=== PATIENT | male | born 1975 | race Two or more races ===

== ENCOUNTER 2023-12-01 09:12 | Outpatient (REF) | payer MEDICAID, OTHER, SELFPAY ==
--- NOTE | ~2023-12-01 | US_ITS ---
EXAMINATION: US ABDOMEN COMPLETE CLINICAL INFORMATION: Right upper quadrant pain. COMPARISON: None available. TECHNIQUE: Real-time imaging of the abdominal viscera. FINDINGS: PANCREAS: Limited visualization. ABDOMINAL AORTA: The proximal, mid, and distal segments are normal in caliber. INFERIOR VENA CAVA: Visualized portions are normal. LIVER: The liver is normal in size. The liver contour is normal. There is diffuse increased liver parenchymal echogenicity, consistent with hepatic steatosis. No focal hepatic lesion. There is no intrahepatic biliary duct dilatation seen. GALLBLADDER: Stones and sludge in the gallbladder. Diffuse gallbladder wall thickening. Negative sonographic Esparza sign. COMMON BILE DUCT: Normal in caliber measuring 0.4 cm in diameter. RIGHT KIDNEY: No hydronephrosis. No renal calculi or focal parenchymal lesions. The kidney measures 12.6 cm in maximum dimension. LEFT KIDNEY: No hydronephrosis. No renal calculi or focal parenchymal lesions. The kidney measures 9.9 cm in maximum dimension. SPLEEN: The spleen measures 9.3 cm in maximum dimension. FREE FLUID: None. US/US abdomen complete IMPRESSION: Hepatic steatosis. Stones and sludge in the gallbladder with gallbladder wall thickening. Findings are equivocal for acute cholecystitis. Advise clinical correlation.
== END 2023-12-01 09:13 | disposition home or self-care (01) ==
LOC: HO.US 09:12
PROVIDERS: Visit Provider Internal Medicine
DX: R10.11 Right upper quadrant pain (principal); Z87.19 Personal history of other diseases of the digestive system
CPT/HCPCS: 76700

== ENCOUNTER 2024-09-13 08:25 | Outpatient (REF) | payer MEDICAID, OTHER, SELFPAY ==
[2024-09-13 12:38] LABS: Estimated Average Glucose 111 mg/dL; Hemoglobin A1C 129.1801 umol/L; Hemoglobin A1c % 5.5 % (<6.0); Total Hemoglobin (HGBA1C) 3493.7218 umol/L
[2024-09-13 12:41] LABS: Anion Gap 12 (12-20); Blood Urea Nitrogen 17 mg/dL (9-16); Calcium 9.4 mg/dL (8.4-10.2); Carbon Dioxide 25 mmol/L (22-29); Chloride 107 mmol/L (96-108); Estimated Glomerular Filt Rate > 60; Glucose Random 95 mg/dL (60-115); Potassium 3.9 mmol/L (3.3-5.1); Sodium 140 mmol/L (135-145)
== END 2024-09-13 08:26 | disposition home or self-care (01) ==
LOC: HO.HHCL 08:25
PROVIDERS: Visit Provider Student in an Organized Health Care Education/Training Program
DX: R35.0 Frequency of micturition (principal)
CPT/HCPCS: 36415; 80048; 83036

== ENCOUNTER 2024-11-18 11:57 | Outpatient (REF) | payer OTHER, SELFPAY ==
--- OUTSIDE RECORDS SUMMARY | 2024-11-18 13:05 | XMS_ITS | Clinical Summary ---
Author Organization [facility] Address [address] [place] [address] Care Team Providers Care Biological Science Technician Name Role Phone Shannen Turner Primary Care Provider [phone] Allergies No known active allergies Medications No known medications Active Problems Problem Noted Date Diagnosed Date Chronic cholecystitis 01/28/2024 Social History Tobacco Use Types Packs/Day Years Used Date Smoking Tobacco: Never Passive Smoke Exposure: Never Smokeless Tobacco: Never Tobacco Cessation:Counseling Given: Yes Sex and Gender Information Value Date Recorded Sex Assigned at Male 01/01/2024 11:59 AM EDT Legal Sex Male 1:38 PM EDT Gender Identity Male 05/08/2023 1:38 PM EDT Sexual Orientation Not on file Last Filed Vital Signs Vital Sign Reading Time Taken Comments Blood Pressure 119/73 01/23/2024 3:53 PM EDT Pulse 69 01/23/2024 3:53 PM EDT Temperature 36.3 ??C (97.3 ??F) 01/23/2024 3:53 PM ED T Respiratory Rate - - Oxygen Saturation 99% 01/23/2024 3:53 PM EDT Inhaled Oxygen Concentration - - Weight 68.9 kg (151 lb 14.4 oz) 01/23/2024 3:53 PM EDT Height - - Body Mass Index - - Plan of Treatment Health Maintenance Due Date Last Done Comments Cologuard 1976 Colon Cancer Screening 1976 Colonoscopy 1976 FOBT / Fit Test 1976 HIV Screening 1976 Hepatitis C Screening 1976 Sigmoidoscopy 1976 Hepatitis B Vaccines (1 of 3 - 19+ 3-dose series) 1995 DTaP,Tdap,and Td Vaccines (1 - Tdap) 1998 COVID-19 Vaccine ( - 2023-2 5 season) 2024 Influenza Vaccine (#1) 2024 Alcohol/Substance Use Screening 09/29/2024 Depression Screening and Follow-Up 09/29/2024 Social Drivers of Health Vandana ual Screening 09/29/2024 RSV Vaccine (60+ years old a nd patients) (1 - 1-dose 75+ series) 2051 Pneumococcal Vaccine: Pediat reema (0-5 Years) and At-Risk Patients (6-50 Years) Aged Out No longer eligible b ased on patient's age to complete this topic [place] [address] [place] [address] HSNO/FREE CARE Care Teams Biological Science Technician Relationship Specialty Start Date End Date Shannen Turner PCP - General 05/08/23
--- OUTSIDE RECORDS SUMMARY | 2024-11-18 13:05 | XMS_ITS | Encounter Summary ---
Author Organization [facility] Address [address] [facility] 7[address] [place] [address] Care Team Providers Care Power Transformer Inspector Name Role Phone Unavailable Primary Care Provider Unavailabl e Reason for Visit * Reason Comments [place] Encounter Details Date Type Department Care Team (Late st Contact Info) Description 11/03/2024 2:00 PM EST Office Visit [facility] ADULT [facility] [address] [place] [address] Ashlee Ayala Social History Tobacco Use Types Packs/Day Years Used Date Smoking Tobacco: Never Smokeless Tobacco: Never Alcohol Use Standard Drinks/Week Comments Defer 0 (1 standard drink = 0.6 oz pur e alcohol) Sex and Gender Information Value Date Recorded Sex Assigned at Male 05/01/2023 10:05 AM EDT Legal Sex Male 10:00 AM EDT Gender Identity Male 05/01/2023 10:05 AM EDT Sexual Orientation Straight 05/01/2023 10 :08 AM EDT documented as of this encounter Last Filed Vital Signs Vital Sign Reading Time Taken Comments Blood Pressure 100/60 11/03/2024 2:07 PM EST Pulse - - Temperature - - Respiratory Rate - - Oxygen Saturation - - Inhaled Oxygen Concentration - - Weight - - Height - - Body Mass Index - - documented in this encounter Progress Notes * Ashlee Ayala - 11/03/2024 2:00 PM EST Patient ID: Kwan Torres is a 49 y.o. male. Time Out: Timeout Date: 11/03/24, Timeout Time: 1407 (final impression for crown) Location: [facility] Tooth: #31 Procedure: Odanah and Odanah final impression Verified the above with patient, patient clerical assistant, and provider. Confirmed via patient's chart, intraorally and by radiographs. Customer Business Manager: not applicable Chief Complaint Patient presents with [facility] Medical Hx: Vitals: Blood pressure 100/60. Medications, Med Hx reviewed with patient and updated in chart. Consent Obtained: The risks, benefits, indications, potential complications, and alternatives were explained to the patient and informed consent was obtained with good understanding. Treatment Provided: Dental procedures in this visit D9430 - OFFICE VISIT FOR OBSERVATION (DURING REGULARLY SCHEDULED HOURS) - NO OTHER SERVICES PERFORMED (Completed) Service provider: Ashlee Ayala Billing provider: Fred Valdes DDS D9450 - ADJUNCTIVE GENERAL SERVICES - PROFESSIONAL VISITS - CASE PRESENTATION, SUBSEQUENT TO DETAILED AND EXTENSIVE TREATMENT PLANNING (Completed) Service provider: Ashlee Ayala Billing provider: Fred Valdes DDS D2700.1 - CROWN PREP 31 (Completed) Service provider: Ashlee Ayala Billing provider: Fred Valdes DDS D2799 - PROVISIONAL CROWN - FURTHER TREATMENT OR COMPLETION OF DIAGNOSIS NECESSARY PRIOR TO FINAL IMPRESSION 31 (Completed) Service provider: Ashlee Ayala Billing provider: Fred Valdes DDS Topical: 20% Benzocaine Anesthesia: 2% Lidocaine (Xylocaine) w/ 1:100,000 epinephrine Number of Cartridges: 2 Injection Type: Buccal infiltration, Inferior alveolar nerve block, and Local Confirmed profound anesthesia. Isolation: cotton rolls Prepared tooth for: Ceramic crown Gingival Retraction: Cord, Size 000. Cord removal verified prior to discharge Final Impression taken with: Paradigm Heavy & Light Body Bite Registration taken with: None Provisional fabricated with: Paradigm Temp Material and cemented with: TempBond Shade: A2 Lab used: [facility] Due Date: Return when completed POI given to patient with instructions for homecare, to avoid sticky or crunchy foods, and to call if temp crown becomes dislodged. All questions answered. Patient tolerated procedure well, and was discharged alert, oriented, and in stable condition. NV: 2 MO Project Management Instructor: Constance Valles Dentist: Ashlee Ayala documented in this encounter Plan of Treatment Upcoming Encounters Date Type Department Care Team (Late st Contact Info) Description 11/19/2024 10:00 AM EST Office Visit [facility] ADULT [facility] [address] [place] [address] Scheduled Orders Name Type Priority Associated Diagnoses Orde r Schedule 31 31 CROWN - PORCELAIN/CERAMIC Dental Routine 1 Occurrences starting 11/11/2024 documented as of this encounter Procedures Procedure Name Priority Date/Time Associated Diagnosis Comments 31 CROWN PREP Routine 11/03/2024 2:00 PM EST 31 PROVISIONAL CROWN - FURTHER TREATMENT OR COMPLETION OF DIAGNOSIS NECESSARY PRIOR TO FINAL IMPRESSION Routine 11/03/2024 2:00 PM EST OFFICE VISIT FOR OBSERVATION (DURING REGULARLY SCHEDULED HOURS) - NO OTHER SERVICES PERFORMED Routine 11/03/2024 2:00 PM EST CASE PRESENTATION, DETAILED AND EXTENSIVE TREATMENT PLANNING Routine 11/03/2024 2:00 PM EST documented in this encounter Visit Diagnoses Not on filedocumented in this encounter
--- OUTSIDE RECORDS SUMMARY | 2024-11-18 13:05 | XMS_ITS | Encounter Summary ---
Author Organization [facility] Address [address] [facility] 7[address] [place] [address] Care Team Providers Care Disability Hearing Officer Name Role Phone Unavailable Primary Care Provider Unavailabl e Reason for Referral * Consultation (Urgent) - Authorized Specialty Diagnoses / Procedures Referred By Contac t Referred To Contact Urology Diagnoses Urinary frequency Favio Byrd MD [address] [place] [id number] Phone: tel: fax: [facility] [address] [place], [place] Phone: tel: fax: Referral ID Status Reason Start Date Expiration Date Visits Requested Visits Authorized [id number] Authorized Specialty Services Required 11/17/2024 11/17/2025 1 1 Reason for Visit * Reason Comments UTI Encounter Details Date Type Department Care Team (Late st Contact Info) Description 11/17/2024 10:40 AM EST Office Visit [facility] [address] [place] [id number] Favio Byrd MD [address] [place] [id number] Urinary frequency (Primary Dx) Social History Tobacco Use Types Packs/Day Years [...] Sign Reading Time Taken Comments Blood Pressure 117/74 11/17/2024 10:41 AM EST Pulse 68 11/17/2024 10:41 AM EST Temperature 36.6 ??C (97.8 ??F) 11/17/2024 10:[address] Respiratory Rate 16 11/17/2024 10:41 AM EST Oxygen Saturation 97% 11/17/2024 10:41 AM EST Inhaled Oxygen Concentration - - Weight 71.4 kg (157 lb 6.4 oz) 11/17/2024 10:41 AM EST Height - - Body Mass Index 29.72 09/10/2023 4:05 PM EST documented in this encounter Progress Notes * Favio Byrd MD - 11/17/2024 10:40 AM EST Subjective Patient ID: Kwan Torres is a 49 y.o. male. Biscuit Machine Operator: Virgil. CECE Bowens was seen in [facility] 09/08/2024 for 1 week h/o urinary frequency. U/a , BMP, A1C were all normal. Was seen at [facility] ED 09/14/2024 for ongoing urinary frequency. CBC, CMP, u/a were normal. US Kidneys and Bladder Final Result 1. Normal kidneys and bladder. 2. Mildly prominent prostate. Prescribed Flomax. He returns to [facility] today because of no improvement in sx. Flomax didn't help. Urinates 15x/day, 2x/night. Has 2 week h/o intermittent mild suprapubic discomfort that resolves when he urinates. Denies hematuria, burning on urination, fever, chills, n/v, urethral discharge, or flank pain. No urinary urgency or hesitancy; states normal stream. Lives with . 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 Never smoked. Patient Active Problem List Diagnosis Headache Back pain Acute cholecystitis Acute apical periodontitis of pulpal origin Cholecystitis Chronic cholecystitis Dental caries Fractured dental mu-ism with loss of material The following portions of the chart were reviewed this encounter and updated as appropriate: Tobacco Allergies Meds Problems Med Hx Surg Hx Fam Hx Review of Systems Constitutional: Negative for fever. Respiratory: Negative for shortness of breath. Cardiovascular: Negative for chest pain. Gastrointestinal: Positive for abdominal pain. Genitourinary: Positive for frequency. Negative for flank pain and hematuria. Skin: Negative for rash. Neurological: Negative for headaches. Objective Physical Exam Constitutional: Appearance: Normal appearance. HENT: Nose: Nose normal. Eyes: Conjunctiva/sclera: Conjunctivae normal. Pupils: Pupils are equal, round, and reactive to light. Cardiovascular: Rate and Rhythm: Normal rate and regular rhythm. Heart sounds: No murmur heard. Pulmonary: Effort: Pulmonary effort is normal. Breath sounds: Normal breath sounds. Abdominal: General: Abdomen is flat. Palpations: Abdomen is soft. Tenderness: There is abdominal tenderness (minimal suprapubic). Musculoskeletal: General: Normal range of motion. Cervical back: No tenderness. Skin: Findings: No rash. Neurological: Mental Status: He is alert. Gait: Gait is intact. Psychiatric: Mood and Affect: Mood normal. Behavior: Behavior normal. Procedures Assessment/Plan Diagnoses and all orders for this visit: Urinary frequency U/a: normal. Urine C&S pending. Referred to Urology. - Culture, Urine, Routine documented in this encounter Plan of Treatment Upcoming Encounters Date Type Department Care Team (Late st Contact Info) Description 11/19/2024 10:00 AM EST Office Visit [facility] [address] [place] [address] Scheduled Orders Name Type Priority Associated Diagnoses Orde r Schedule Culture, Urine, Routine Microbiology Routine Urinary frequency Ordered: 11/17/2024 Scheduled Referrals Name Type Priority Associated Diagnoses Orde r Schedule Referral to Urology Outpatient Referral Urgent Urinary frequency Expected: 11/17/2024 (Approximate), Expires: 11/17/2025 documented as of this encounter Visit Diagnoses Diagnosis Urinary frequency- Primary documented in this encounter
--- OUTSIDE RECORDS SUMMARY | 2024-11-18 13:05 | XMS_ITS | Referral Summary ---
Author Organization [facility] Address [address] [place], [place] [phone] Care Team Providers Care Medical Device Engineer Name Role Phone Shannen Turner Primary Care Provider [phone] Allergies No known active allergies Medications No [...] Mass Index - - Plan of Treatment Not on file Insurance [facility] HS[facility]/FREE CARE Care Teams Medical Device Engineer Relationship Specialty Start Date End Date Shannen Turner PCP - General 05/08/23
--- OUTSIDE RECORDS SUMMARY | 2024-11-18 13:05 | XMS_ITS | Encounter Summary ---
Author Organization [facility] Address [address] [place] [address] 7 [place] [address] Care Team Providers Care Driver Manager Name Role Phone Unavailable Primary Care Provider Unavailabl e Reason for Visit * Reason Onset Date Comments New Patient 05/15/2023 Encounter Details Date Type Department Care Team (Late st Contact Info) Description 05/15/[address] [facility] [address] [place], [place] [phone] Sylvain Ford MD [address] [place], [place] [phone] New Patient Social History Tobacco Use Types Packs/Day Years Used Date Smoking Tobacco: Never Smokeless Tobacco: Never Sex and Gender Information Value Date Recorded Sex Assigned at Male 05/01/2023 10:05 AM EDT Legal Sex Male 10:00 AM EDT Gender Identity Male 05/01/2023 10:05 AM EDT Sexual Orientation Straight 05/01/2023 10 :08 AM EDT documented as of this encounter Miscellaneous Notes * Telephone Encounter - Preston Soler - 05/15/2023 12:33 PM EDT Pt has been transfer over to wait list for SIEVE MAKER. EFFECTIVE SINCE 05/15/2023 documented in this encounter Plan of Treatment Upcoming Encounters Date Type Department Care Team (Late st Contact Info) Description 11/19/2024 10:00 AM EST Office Visit [facility] ADULT DENT[facility] [address] [place], [place] [phone] documented as of this encounter Visit Diagnoses Not on filedocumented in this encounter
--- OUTSIDE RECORDS SUMMARY | 2024-11-18 13:06 | XMS_ITS | Clinical Summary ---
Author Organization [facility] Address [address] [place] [address] Care Team Providers Care Interventional Pain Physician Name Role Phone Priyanka Jo MD Primary Care Provider [phone] Allergies No known active allergies Medications Medication Sig Dispensed Refills Start Date End Date Status acetaminophen (TYLENOL) 325 MG tabletIndications:Acut e cholecystitis Take 3 tablets (975 mg total) by mouth 4 times daily (every 6 hours) as needed for mild pain. 08/27/2023 Active HYDROmorphone (DILAUDID) 2 MG tabletIndications:Acut e cholecystitis Take 1 tablet (2 mg total) by mouth 4 times daily (every 6 hours) as needed for moderate pain or severe pain. Max Daily Amount: 8 mg 8 tablet 08/27/2023 Active levoFLOXacin (LEVAQUIN) 500 MG tabletIndications:Acut e cholecystitis Take 1 tablet (500 mg total) by mouth daily. 5 tablet 08/27/2023 Active Active Problems Problem Noted Date Diagnosed Date Cholecystitis 08/23/2023 Acute cholecystitis 08/22/2023 Social History Tobacco Use Types Packs/Day Years Used Date Smoking Tobacco: Never Assessed Sex and Gender Information Value Date Recorded Sex Assigned at Male 08/22/2023 10:34 PM EST Gender Identity Male 08/22/2023 10:34 PM EST Sexual Orientation Heterosexual (straight) 08/22 10:34 PM EST Last Filed Vital Signs Vital Sign Reading Time Taken Comments Blood Pressure 121/75 10/15/2023 9:35 AM EST Pulse 64 10/15/2023 9:35 AM EST Temperature 35.6 ??C (96.1 ??F) 10/15/2023 8:51 AM ES T Respiratory Rate 16 10/15/2023 9:35 AM EST Oxygen Saturation 98% 10/15/2023 9:35 AM EST Inhaled Oxygen Concentration - - Weight 72.6 kg (160 lb) 08/23/2023 2:41 AM EST Height 155 cm (5' 1.02 ) 08/23/2023 2:41 AM EST Body Mass Index 30.21 08/23/2023 2:41 AM EST Plan of Treatment Health Maintenance Due Date Last Done Comments Hepatitis C Virus Screening 1976 HIV Screening 1989 DTaP/Tdap/Td Vaccines (1 - Tdap) 1995 Hepatitis B Vaccines (1 of 3 - 19+ 3-dose series) 1995 Colonoscopy 2021 Influenza Vaccine 04/29/2024 COVID-19 Vaccine ( - 2023-2 5 season) 2024 Pneumococcal Vaccine: Pediat reema (0-5 Years) and At-Risk Patients (6 to 49 Years) Aged Out No longer eligible b ased on patient's age to complete this topic Additional Health Concerns Infection Onset Date Last Indicated MDRO Comment:Place on contact precautions for each acute care admission Urine 08/25/2023 - E.coli ESBL 08/29/2023 08/29/2023 Advance Directives * Full Code (Latest Code Status on File) Date Activated Date Inactivated Comments 08/23/2023 2:20 AM 10/15/2023 8:33 AM Care Teams Interventional Pain Physician Relationship Specialty Start Date End Date Priyanka Jo MD [address] [place] [phone] PCP - General Surgery, General 08/13/23
--- OUTSIDE RECORDS SUMMARY | 2024-11-18 13:06 | XMS_ITS | Encounter Summary ---
Author Organization [facility] Address [address] [facility] 7t [place] [address] Care Team Providers Care Functional Tester Typewriters Name Role Phone Unavailable Primary Care Provider Unavailabl e Reason for Visit * Reason Comments [place] Encounter Details Date Type Department Care Team (Late st Contact Info) Description 10/22/2024 10:00 AM EST Office Visit [facility] ADULT DENTAL [address] [place] [address] Ashlee Ayala Social History Tobacco Use Types [...] Sign Reading Time Taken Comments Blood Pressure 90/60 10/22/2024 10:15 AM EST Pulse - - Temperature - - Respiratory Rate - - Oxygen Saturation - - Inhaled Oxygen Concentration - - Weight - - Height - - Body Mass Index - - documented in this encounter Progress Notes * Ashlee Ayala - 10/22/2024 10:00 AM EST Patient ID: Kwan Torres is a 49 y.o. male. Time Out: Timeout Date: 10/22/24, Timeout Time: 101 (crown prep) Location: [facility] Tooth: #30 and #31 Procedure: Bahai Verified the above with patient, water quality assistant, and provider. Confirmed via patient's chart, intraorally and by radiographs. Pharmacist Intern: not applicable Chief Complaint Patient presents with [place] Medical Hx: Vitals: Blood pressure 90/60. Medications, Med Hx reviewed with patient and updated in chart. Consent Obtained: The risks, benefits, indications, potential complications, and alternatives were explained to the patient and informed consent was obtained with good understanding. Treatment Provided: Dental procedures in this visit D2392 - RESTORATIVE - RESIN-BASED COMPOSITE RESTORATIONS - DIRECT - RESIN-BASED COMPOSITE - TWO SURFACES, POSTERIOR 30 DO (Completed) Service provider: Ashlee Ayala Billing provider: Fred Valdes DDS D2392 - RESTORATIVE - RESIN-BASED COMPOSITE RESTORATIONS - DIRECT - RESIN-BASED COMPOSITE - TWO SURFACES, POSTERIOR 31 MO (Completed) Service provider: Ashlee Ayala Billing provider: Fred Valdes DDS D9450 - ADJUNCTIVE GENERAL SERVICES - PROFESSIONAL VISITS - CASE PRESENTATION, SUBSEQUENT TO DETAILED AND EXTENSIVE TREATMENT PLANNING Diagnosis: DO caries #30 and DO caries #31 Topical: 20% Benzocaine Anesthesia: 2% Lidocaine (Xylocaine) w/ 1:100,000 epinephrine Number of Cartridges: 2 Injection Type: Buccal infiltration, Inferior alveolar nerve block, and Local Confirmed profound anesthesia. Isolation: cotton rolls Prep: All caries removed and Existing rastafarian removed Matrix: [place] and wedge Etch: 37% Phosphoric Acid Etch Desensitizer: Gluma Liner/Base: LimeLite Romero: I-Romero Bahai Material: Filtek [place] Flowable Composite and Paradigm Composite Shade: A3 Polished. Occlusion & contacts verified. Patient satisfied with comfort and esthetics. Patient tolerated procedure well. Post-operative instructions were given. Patient departed alert, oriented, and in stable condition. NV: [place] prep and temp #31 Tongue And Groove Machine Operator: Constance Valles Dentist: Ashlee Ayala documented in this encounter Plan of Treatment Upcoming Encounters Date Type Department Care Team (Late st Contact Info) Description 11/19/2024 10:00 AM EST Office Visit [facility] ADULT [facility] [address] [place] [address] documented as of this encounter Procedures Procedure Name Priority Date/Time Associated Diagnosis Comments 31 MO RESIN-BASED COMPOSITE - 2 SURF, POSTERIOR Routine 10/22/2024 10:00 AM EST 30 DO RESIN-BASED COMPOSITE - 2 SURF, POSTERIOR Routine 10/22/2024 10:00 AM EST CASE PRESENTATION, DETAILED AND EXTENSIVE TREATMENT PLANNING Routine 10/22/2024 10:00 AM EST documented in this encounter Visit Diagnoses Not on filedocumented in this encounter
--- OUTSIDE RECORDS SUMMARY | 2024-11-18 13:06 | XMS_ITS | Encounter Summary ---
Author Organization [employer] [facility] Address [address] 7 [place] [address] Care Team Providers Care Pharmaceutical Worker Name Role Phone Unavailable Primary Care Provider Unavailabl e Reason for Visit * Reason Comments Ginger Blue Encounter Details Date Type Department Care Team (Late st Contact Info) Description 11/11/2024 2:30 PM EST Office Visit [facility] ADULT DENTAL [address] [place], [place] [phone] LucyClcarlos Defective dental orthodoxy (Primary Dx) Social History Tobacco Use Types [...] Sign Reading Time Taken Comments Blood Pressure 122/80 11/11/2024 2:51 PM EST Pulse - - Temperature - - Respiratory Rate - - Oxygen Saturation - - Inhaled Oxygen Concentration - - Weight - - Height - - Body Mass Index - - documented in this encounter Progress Notes * Ashlee Lucy - 11/11/2024 2:30 PM EST Patient ID: Kwan Torres is a 49 y.o. male. Time Out: Timeout Date: 11/11/24, Timeout Time: 1437 (crown delivery) Location: [facility] Tooth: #4 Procedure: Anabaptist Verified the above with patient, electrician station assistant, and provider. Confirmed via patient's chart, intraorally and by radiographs. Caustic Room Operator: Yes. Language: Irish. Caustic Room Operator: Madai Cosby Chief Complaint Patient presents with Ginger Blue Medical Hx: Vitals: Blood pressure 122/80. Medications, Med Hx reviewed with patient and updated in chart. Consent Obtained: The risks, benefits, indications, potential complications, and alternatives were explained to the patient and informed consent was obtained with good understanding. 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 Isolation: cotton rolls Prep: All caries removed, Existing orthodoxy removed, and Preparation finalized Matrix: Sectional Matrix and wedge Etch: 37% Phosphoric Acid Etch and None Desensitizer: Gluma Liner/Base: LimeLite Romero: I-Romero Anabaptist Material: Filtek Ple[place] Flowable Composite Shade: A2 Polished. Occlusion & contacts verified. Patient satisfied with comfort and esthetics. Patient tolerated procedure well. Post-operative instructions were given. Patient departed alert, oriented, and in stable condition. NV: Ginger Blue insertion #31 Claims Examiner: Constance Valles Dentist: Ashlee Ayala documented in this encounter Plan of Treatment Upcoming Encounters Date Type Department Care Team (Late st Contact Info) Description 11/19/2024 10:00 AM EST Office Visit [facility] ADULT DENTAL [address] [place] [address] documented as of this encounter Procedures Procedure Name Priority Date/Time Associated Diagnosis Comments 4 DO RESIN-BASED COMPOSITE - 2 SURF, POSTERIOR Routine 11/11/2024 2:30 PM EST CASE PRESENTATION, DETAILED AND EXTENSIVE TREATMENT PLANNING Routine 11/11/2024 2:30 PM EST documented in this encounter Visit Diagnoses Diagnosis Defective dental orthodoxy- Primary Unspecified unsatisfactory orthodoxy of tooth documented in this encounter
--- OUTSIDE RECORDS SUMMARY | 2024-11-18 13:06 | XMS_ITS | Clinical Summary ---
Author Organization [facility] Address [address] [place] [address] Care Team Providers Care Lna Name Role Phone Unavailable Primary Care Provider Unavailabl e Allergies No known active allergies Medications acetaminophen (Tylenol) 500 MG tabletIndications :Acute apical periodontitis of pulpal origin,Fractured dental hindu with loss of material Take 1 tablet (500 mg) by mouth every 6 (six) hours if needed for mild pain for up to 20 doses. 20 tablet 4 Active Additional Information Patient not taking.Reported on 10/13/2024 ibuprofen 600 MG tabletIndications :Acute apical periodontitis of pulpal origin,Fractured dental hindu with loss of material Take 1 tablet (600 mg) by mouth every 6 (six) hours if needed for mild pain for up to 20 doses. 20 tablet 4 Active Additional Information Patient not taking.Reported on 10/13/2024 Active Problems Problem Noted Date Diagnosed Date Fractured dental hindu with loss of materi al 09/08/2024 Dental caries 02/18/2024 Chronic cholecystitis 01/28/2024 Acute apical periodontitis of pulpal origin 11/2023 Cholecystitis 08/23/2023 Acute cholecystitis 08/22/2023 09/10/2023 Overview (09/10/2023): Admitted to [facility] 08/27/23 for acute acholecystitis and COVID 1, treated with antibiotics and percutaneous cholecystotomy tube placement. Instructed at diachage to flush with sterile saline BID. Instructions at discharge: He was advised to schedule appointment with the Interventional Radiology (IR) team in approximately 4 weeks (end of August) unless otherwise instructed. If you have not received an appointment at the time you leave the hospital, call [phone] to schedule an appointment. It was also advised that most patients have a cholangiogram approximately 6 weeks after the tube is placed to help the surgeon decide if your tube can be removed or if you will need a surgery. If you have not received an appointment at the time you leave the hospital, call [phone] to schedule an appointment. I strongly advise pt follow up with surgery. He was given the number again to call and ER precautions. We attempted to call [facility] to confirmif he has an appointment but it closed before. We went over instructions in detail on how to call in the am and make an appointment. He will also be placed on the waiting list for a ne patient appointment here at the [facility]. Assessment & Plan (09/10/2023 5:04 PM EST): Admitted to [facility] 08/27/23 for acute acholecystitis and COVID 1, treated with antibiotics and percutaneous cholecystotomy tube placement. Instructed at [facility] to flush with sterile saline BID. Instructions at discharge: He was advised to schedule appointment with the Interventional Radiology (IR) team in approximately 4 weeks (end of August) unless otherwise instructed. If you have not received an appointment at the time you leave the hospital, call [phone] to schedule an appointment. It was also advised that most patients have a cholangiogram approximately 6 weeks after the tube is placed to help the surgeon decide if your tube can be removed or if you will need a surgery. If you have not received an appointment at the time you leave the hospital, call [phone] to schedule an appointment. I strongly advise pt follow up with surgery. He was given the number again to call and ER precautions. We attempted to call [facility] to confirmif he has an appointment but it closed before. We went over instructions in detail on how to call in the am and make an appointment. He will also be placed on the waiting list for a ne patient appointment here at the [facility]. Headache 05/01/2023 Assessment & Plan (05/01/2023 7:48 PM EDT): Reports having for the past 18 months on and off headaches that can be intense ,not localized sometimes can be in temporal area ,sometimes in frontal , described as electric sensation vs throbbing, denies to be associated w N/V/Positional/Nor awakes from sleep/no blurry vision . 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 [address] [place] [address] Favio Byrd MD Urinary frequency (Primary Dx) 11/11/2024 2:30 PM EST Office Visit [facility] ADULT DENTAL [address] [place] [address] Ashlee Ayala Defective dental hindu (Primary Dx) 11/03/2024 2:00 PM EST Office Visit [facility] [address] [place] [address] Delpazi, Cltin 10/27/2024 1:00 PM EST Office Visit [facility] [address] [place] [address] Delpazi, Cltin 10/22/2024 10:00 AM EST Office Visit [facility] [address] [place] [address] Tonii, Cltin 10/13/2024 1:00 PM EST Office Visit [facility] [address] [place] [address] Fred Valdes DDS Dental caries (Primary Dx) 09/08/2024 2:20 PM EST Office Visit [facility] [address] [place] [address] Janet Keyes MD Urinary frequency (Primary Dx) 09/08/2024 11:30 AM EST Office Visit [facility] [address] [place] [address] Fred Valdes DDS Acute apical periodontitis of pulpal origin (Primary Dx); Fractured dental hindu with loss of material from Last 3 Months Social History Tobacco Use Types Packs/Day Years Used Date Smoking Tobacco: Never Smokeless Tobacco: Never Tobacco Cessation:Counseling Given: Not Answered Alcohol Use Standard Drinks/Week Comments Defer 0 (1 standard drink = 0.6 oz pur e alcohol) Sex and Gender Information Value Date Recorded Sex Assigned at Male 05/01/2023 10:05 AM EDT Legal Sex Male 10:00 AM EDT Gender Identity Male 05/01/2023 10:05 AM EDT Sexual Orientation Straight 05/01/2023 10 :08 AM EDT Last Filed Vital Signs Vital Sign Reading [...] 6.4 oz) 11/17/2024 10:41 AM EST Height 155 cm (5' 1.02 ) 09/10/2023 4:05 PM EST Body Mass Index 29.72 09/10/2023 4:05 PM EST Plan of Treatment Upcoming Encounters Date Type Department Care Team (Late st Contact Info) Description 11/19/2024 10:00 AM EST Office Visit [facility] [address] [place] [address] Health Maintenance Due Date Last Done Comments CT Colonography 1976 Colonoscopy 1976 Colorectal Cancer Screening 1976 Depression Screening 1976 FIT DNA/Cologuard 1976 FIT 1976 FOBT 1976 HIV Screening 1976 Lipid Panel 1976 SDOH Screening 1976 Sigmoidoscopy 1976 Alcohol/Substance Use Screening 1988 Family Planning (PISQ) 1991 Hepatitis C Screening 1994 DTaP/Tdap/Td Vaccines (1 - Tdap) 1995 Hepatitis B Vaccines (1 of 3 - 19+ 3-dose series) 1995 COVID-19 Vaccine ( - 2023-2 5 season) 2024 Influenza Vaccine (#1) 2024 Dental Oral Exam 11/07/2024 05/06/2024 Dental Prophylaxis 11/07/2024 05/06/2024 Dental X-Ray: Bitewings 05/07/2025 05/06/2024 Tobacco Screening 11/17/2025 11/17/2024 Zoster Vaccines (1 of 2) 2026 Dental X-Ray: Full Mouth 09/09/2027 024, 05/06/2024 RSV Patients and Patients Aged 60 years or older (1 - 1-dose 75+ series) 2051 HIB Vaccines Aged Out No longer eligi ble based on patient's age to complete this topic HPV Vaccines Aged Out No longer eligi ble based on patient's age to complete this topic Hepatitis A Vaccines Aged Out No long er eligible based on patient's age to complete this topic IPV Vaccines Aged Out No longer eligi ble based on patient's age to complete this topic Meningococcal Vaccine Aged Out No miugel luly eligible based on patient's age to complete this topic Pneumococcal Vaccine: Pediatrics (0 to 5 Years) and At-Risk Patients (6 to 49) Years) Aged Out No longer eligible b ased on patient's age to complete this topic RSV under 20 months Aged Out No longe r eligible based on patient's age to complete this topic Rotavirus Vaccines Aged Out No longer eligible based on patient's age to complete this topic Procedures Procedure Name Priority Date/Time Associated Diagnosis Comments CASE PRESENTATION, DETAILED AND EXTENSIVE TREATMENT PLANNING Routine 11/11/2024 2:30 PM EST 4 DO RESIN-BASED COMPOSITE - 2 SURF, POSTERIOR Routine 11/11/2024 2:30 PM EST 31 PROVISIONAL CROWN - FURTHER TREATMENT OR COMPLETION OF DIAGNOSIS NECESSARY PRIOR TO FINAL IMPRESSION Routine 11/03/2024 2:00 PM EST 31 CROWN PREP Routine 11/03/2024 2:00 PM EST CASE PRESENTATION, DETAILED AND EXTENSIVE TREATMENT PLANNING Routine 11/03/2024 2:00 PM EST OFFICE VISIT FOR OBSERVATION (DURING REGULARLY SCHEDULED HOURS) - NO OTHER SERVICES PERFORMED Routine 11/03/2024 2:00 PM EST CASE PRESENTATION, DETAILED AND EXTENSIVE TREATMENT PLANNING Routine 10/27/2024 1:00 PM EST CROWN PREP Routine 10/27/2024 1:00 PM EST CASE PRESENTATION, DETAILED AND EXTENSIVE TREATMENT PLANNING Routine 10/22/2024 10:00 AM EST 31 MO RESIN-BASED COMPOSITE - 2 SURF, POSTERIOR Routine 10/22/2024 10:00 AM EST 30 DO RESIN-BASED COMPOSITE - 2 SURF, POSTERIOR Routine 10/22/2024 10:00 AM EST CASE PRESENTATION, DETAILED AND EXTENSIVE TREATMENT PLANNING Routine 10/13/2024 1:00 PM EST 4 DO RESIN-BASED COMPOSITE - 2 SURF, POSTERIOR Routine 10/13/2024 1:00 PM EST 3 MOD RESIN-BASED COMPOSITE - 3 SURF, POSTERIOR Routine 10/13/2024 1:00 PM EST HEMOGLOBIN A1C Routine 09/13/2024 8:27 AM EST Urinary frequency BASIC METABOLIC PANEL Routine 09/13/2024 8:27 AM EST Urinary frequency POCT GLUCOSE Routine 09/08/2024 2:41 PM EST Urinary frequency POCT URINALYSIS DIPSTICK Routine 09/08/2024 2:41 PM EST Urinary frequency PALLIATIVE (EMERGENCY) TREATMENT OF DENTAL PAIN - MINOR PROCEDURE Routine 09/08/2024 11:30 AM EST CASE PRESENTATION, DETAILED AND EXTENSIVE TREATMENT PLANNING Routine 09/08/2024 11:30 AM EST PANORAMIC RADIOGRAPHIC IMAGE Routine 09/08/2024 11:30 AM EST PROPHYLAXIS - ADULT Routine 05/06/2024 2 :30 PM EDT INTRAORAL - COMPLETE SERIES OF RADIOGRAPHIC IMAGES Routine 05/06/2024 2:30 PM EDT PERIODIC ORAL EVALUATION - ESTABLISHED PATIENT Routine 05/06/2024 2:30 PM EDT from Last 3 Months or Most Recently Relevant to Health Maintenance Results * Hemoglobin A1c (09/13/2024 8:27 AM EST) Hemoglobin A1c 5.5 <6.0 % [facility] Comment:Hemoglobin A1C Refer ence Range Adults: 4.8 - 6.0 % Non diabetic: < 6.0 % Goal: < 7.0 %Additional Action Suggested: > 8.0 %Note: Hemoglobin A1c results are invalid for patients with abnormal amounts of HbF. Blood transfusions may impact the HbA1c concentration in the patient sample. Estimated Average Glucose 111 mg/dL [facility] Comment:eAG = Estimated ave rage glucose which is %A1C expressed asaverage glucose, using the formula of the W0K-FzlyjvxGksneyy Glucose study (ADAG), Diabetes Care, Vol.31,#8,Apr. 2007 Blood Venous blood specimen / Unknown 09/13/2024 8:27 AM EST 09/13/2024 12:10 PM EST us Janet Keyes MD LAB BLOOD ORDERABLES Final Resul t [facility] [address] [place] [phone] * (ABNORMAL) Basic Metabolic Panel (09/13/2024 8:27 AM EST) Sodium 140 135 - 145 mmol/L [facility] Potassium 3.9 3.3 - 5.1 mmol/L [facility] Chloride 107 96 - 108 mmol/L [facility] Carbon Dioxide 25 22 - 29 mmol/L [facility] Anion Gap 12 12 - 20 [facility] Urea Nitrogen (BUN) 17(H) 9 - 16 mg/dL [facility] Creatinine, Serum 0.84 0.5 - 1.4 mg/dL [facility] Estimated Glomerular Filt Rate >60 [facility] Comment:Chronic Kidney Disea se: Estimated GFR < 60 mL/min/[id number] Kidney Disease: Estimated GFR < 15 mL/min/1.73m2 Glucose 95 60 - 115 mg/dL [facility] Calcium 9.4 8.4 - 10.2 mg/dL [facility] Blood Venous blood specimen / Unknown 09/13/2024 8:27 AM EST 09/13/2024 12:12 PM EST Result Jefry Keyes MD LAB BLOOD ORDERABLES Final Resul t [facility] [address] [place] [address] [phone] * POCT glucose manually resulted (09/08/2024 2:41 PM EST) Glucose Blood, POC 124 60 - 200 mg/dL Blood Capillary blood specimen / Unknown 09/08/2024 2:41 PM EST Result Jefry Keyes MD POINT OF CARE TEST ENTER/EDIT OR DERABLES Final Result * POCT urinalysis dipstick manually resulted (09/08/2024 2:41 PM EST) Color, UA Yellow Clarity, UA Clear Glucose, UA Negative Bilirubin, UA Negative Ketones, UA Positive Comment:trace Spec Grav, UA 1.025 Blood, UA Negative Negative, None Detected pH, UA 6.0 Protein, UA Negative Urobilinogen, UA 0.2 Leukocytes, UA Negative Negative, Rare, Trace Nitrite, UA Negative Negative, None Detected Urine 09/08/2024 2:41 PM EST Result Jefry Keyes MD POINT OF CARE TEST ENTER/EDIT OR DERABLES Final Result from Last 3 Months Insurance [employer] [facility]SN [facility] FULL DENTAL - HSN FULL (MEDICAID)
--- OUTSIDE RECORDS SUMMARY | 2024-11-18 13:06 | XMS_ITS | Encounter Summary ---
Author Organization [facility] Address [address] [place] [address] Care Team Providers Care Cable Tool Operator Name Role Phone Unavailable Primary Care Provider Unavailabl e Reason for Visit * Reason Comments [place] Encounter Details Date Type Department Care Team (Late st Contact Info) Description 10/27/2024 1:00 PM EST Office Visit [facility] ADULT DENT[facility] [address] [place] [address] Ashlee Ayala Social History Tobacco Use Types [...] Sign Reading Time Taken Comments Blood Pressure 100/70 10/27/2024 1:11 PM EST Pulse - - Temperature - - Respiratory Rate - - Oxygen Saturation - - Inhaled Oxygen Concentration - - Weight - - Height - - Body Mass Index - - documented in this encounter Progress Notes * Ashlee Ayala - 10/27/2024 1:00 PM EST Patient ID: Kwan Torres is a 49 y.o. male. Time Out: Timeout Date: 10/27/24, Timeout Time: 1310 (crown prep) Location: [facility] Tooth: #31 Procedure: [place] Verified the above with patient, education assistant, and provider. Confirmed via patient's chart, intraorally and by radiographs. Appeals Assistant: Yes. Language: Czech. Appeals Assistant's Name: Madai Cosby Chief Complaint Patient presents with [place] Medical Hx: Vitals: Blood pressure 100/70. Medications, Med Hx reviewed with patient and updated in chart. Consent Obtained: The risks, benefits, indications, potential complications, and alternatives were explained to the patient and informed consent was obtained with good understanding. Treatment Provided: Dental procedures in this visit D2700.1 - CROWN PREP (Completed) Service provider: Ashlee Ayala Billing provider: [...] Prepared tooth for: Ceramic crown Gingival Retraction: None Final Impression taken with: No impression taken Bite Registration taken with: None Provisional fabricated with: Paradigm Temp Material and cemented with: TempBond Shade: A2 Lab used: Not sent yet Lab Due Date: Not sent yet POI given to patient with instructions for homecare, to avoid sticky or crunchy foods, and to call if temp crown becomes dislodged. All questions answered. Patient tolerated procedure well, and was discharged alert, oriented, and in stable condition. NV: Final impression Area Loss Prevention Manager: Constance Valles Dentist: Ashlee Ayala documented in this encounter Plan of Treatment Upcoming Encounters Date Type Department Care Team (Late st Contact Info) Description 11/19/2024 10:00 AM EST Office Visit [facility]ULT [facility] [address] [place] [address] documented as of this encounter Procedures Procedure Name Priority Date/Time Associated Diagnosis Comments CROWN PREP Routine 10/27/2024 1:00 PM EST CASE PRESENTATION, DETAILED AND EXTENSIVE TREATMENT PLANNING Routine 10/27/2024 1:00 PM EST documented in this encounter Visit Diagnoses Not on filedocumented in this encounter
== END 2024-11-18 11:58 | disposition home or self-care (01) ==
LOC: HO.LNP 11:57
PROVIDERS: Visit Provider Emergency Medicine
DX: R35.0 Frequency of micturition (principal)
CPT/HCPCS: 87086

== ENCOUNTER 2025-01-12 13:09 | Outpatient (AMB) | payer OTHER, SELFPAY ==
--- NOTE | 2025-01-12 13:12 | A.OFFVIS_ITS ---
Intake Visit Reasons: urinary frequency Intake Note: New Patient presents for initial visit for urinary frequency Urology Medications: tamsulosin Blood Thinner: none PVR: 10ml's Applications Architect Required: Yes Applications Architect Services: Applications Architect Present Applications Architect Name: [id number] Accompanied by: Self / Same As Patient Allergies No Known Allergies Allergy (Verified 01/12/25 13:46) Medication List - Last Reconciled 01/12/25 by NEENA Thompson No Known Home Meds HPI Comments Details: Kwan is a very pleasant 49-year-old Kyrgyz-speaking male patient of Dr. Byrd. He presents to the office today as a new patient for ongoing lower urinary tract symptoms. In discussion with the patient today he reports noting over the last 4 months to be experiencing episodes of urinary urgency and frequency. He reports having followed up with his PCP at which time he was started on Flomax and recommendations were made for urology referral for further assessment evaluation. When asked he reports no improvement in urinary urgency and frequency with 0.4 mg of Flomax daily. He denies any changes to his diet. We discussed at length potential causes of lower urinary tract symptoms patient was experiencing. We discussed obtaining retroperitoneal ultrasound and PSA for further assessment evaluation. GRACE offered however deferred. He otherwise denies incontinence, nocturia, hematuria, dysuria, foul smelling urine, changes to urinary stream, flank pain, fever, and or chills. In office urinalysis results reviewed with the patient today. PVR 10 mL. We discussed bladder triggers and irritants. He otherwise offers no other issues or concerns at this time. [facility] Medical History Fractured dental yazidi with loss of material Dental caries Cholecystitis Periodontitis, acute apical, pupal origin Acute cholecystitis Back pain Headache Review of Systems Const All systems reviewed & are unremarkable except as noted in HPI and below Physical Exam Const General: cooperative, healthy appearing, comfortable, no acute distress, well developed, alert and awake Orientation/consciousness: patient oriented x3 Limitations: no limitations HEENT Head: Yes normal to inspection, Yes normocephalic and Yes atraumatic Ears: hearing grossly normal bilaterally Eyes General: appearance normal, both eyes and all related structures Neck Neck: Yes normal visual inspection and Yes trachea midline Chest Chest palpation & inspection: normal inspection of the chest Resp Effort & Inspection: normal respiratory effort and able to speak in complete sentences Cardio Rate: regular rate GI Inspection: Yes normal to inspection General: Yes no CVA tenderness Back/Spine/Pelvis Back: no CVA tenderness Skin General skin exam: no rashes or lesions noted Neuro General: patient oriented x3 Extrem General: Yes normal to inspection Psych Appearance: grossly normal and well kempt Mental Status: mental status grossly normal Speech and movement: Normal speech and movement present and Clear speech present Affect: normal affect Attitude: cooperative Thought process: Normal thought process present Thought content: Normal thought content present Insight: Fair insight present (Psych) Judgement: Fair judgement present (Psych) Results AMB Urinalysis, Automated UA Leukoctes 0 Sanya/uL Last Edit by [employer] on 01/12/25 13:34 UA Nitrite Last Edit by [employer] on 01/12/25 13:34 UA Urobilinogen 0.2 mg/dL Last Edit by [employer] on 01/12/25 13:34 UA Protein 0 mg/dL Last Edit by [employer] on 01/12/25 13:34 UA pH 6.0 Last Edit by [employer] on 01/12/25 13:34 UA Blood 0 Jayden/uL Last Edit by [employer] on 01/12/25 13:34 UA Specific [place] 1.020 Last Edit by [employer] on 01/12/25 13:34 UA Ketone Negative Last Edit by [employer] on 01/12/25 13:34 UA Bilirubin 0 mg/dL Last Edit by [employer] on 01/12/25 13:34 UA Glucose 0 mg/dL Last Edit by [employer] on 01/12/25 13:34 Results Reviewed Results Reviewed: Laboratory Last Values Urine pH (Auto) 6.0 01/12/25 13:33 Specific [place] (Auto) 1.020 01/12/25 13:33 Urine Protein (Auto) 0 mg/dL 01/12/25 13:33 Glucose (UA)(Auto) 0 mg/dL 01/12/25 13:33 Urine Ketones (Auto) Negative 01/12/25 13:33 Urine Blood (Auto) 0 Jayden/uL 01/12/25 13:33 Urine Bilirubin (Auto) 0 mg/dL 01/12/25 13:33 Urine Urobilinogen (Auto) 0.2 mg/dL 01/12/25 13:33 Leukocyte Esterase (Auto) 0 Sanya/uL 01/12/25 13:33 Assessment & Plan Assessment & Plan (1) Urinary frequency: Code(s): R35.0 - Frequency of micturition Category: Medical (2) Urinary urgency: Code(s): R39.15 - Urgency of urination Category: Medical (3) Lower urinary tract symptoms: Code(s): R39.9 - Unspecified symptoms and signs involving the genitourinary system Category: Medical Plan In office urinalysis results reviewed with the patient today; as noted above. PVR 10 mL. We discussed at length potential causes of lower urinary tract symptoms patient was experiencing as well as further treatment options and risks and benefits of these treatment options. GRACE offered however deferred. Will obtain retroperitoneal ultrasound for further assessment evaluation. Will obtain PSA for further assessment evaluation. Stop Flomax. Start oxybutynin as discussed and prescribed. We discussed bladder triggers/irritants. We discussed potential near future in office cystoscopy and or urodynamics for further assessment evaluation. Follow-up in 1-3 months with PVR; or sooner with any issues, concerns, and or questions. Orders: Orders US retroperitoneal comp Today R35.0 - Frequency of micturition, R39.15 - Urgency of urination Prostate Specific Antigen Today N40.0 - Benign prostatic hyperplasia without lower urinary tract symptoms AMB Urinalysis Automated Today Z13.9 - Encounter for screening, unspecified AMB Post Void Residual by ultrasound Today Z13.9 - Encounter for screening, unspecified Medications: New oxybutynin chloride ER 10 mg PO DAILY 30 days 30 tabs 3RF N32.81 - Overactive bladder Patient Instructions: The patient had an opportunity to ask questions regarding the treatment plan. All questions were answered. Physical exam, labs, and imaging were discussed and reviewed in detail. As well as risks, benefits, and discussion of treatment choices. No major barriers to understanding were identified. The patient expressed understanding and agreement with the above treatment plan. The patient was made aware they should contact our office by phone for worsening of their current condition, the appearance of new symptoms, or with any questions or concerns. Compliance is encouraged with any medications and follow up testing that is ordered. It is a privilege to be allowed the opportunity to participate in? your urological care.? Again, if you have any questions or concerns If you have any questions or concerns please do not hesitate to contact me. The office is [phone]. This note is constructed using voice recognition software. While every effort has been made to ensure accuracy caustic loader errors may have been included. Yours sincerely, NEENA Thompson Coding Level of Care Code New Pt Level 4 (93027) Diagnoses Urinary frequency R35.0 Urinary urgency R39.15 Lower urinary tract symptoms R39.9
--- OUTSIDE RECORDS SUMMARY | 2025-01-12 15:36 | XMS_ITS | Clinical Summary ---
Author Organization [employer] [facility] Address [address] [place] [address] Care Team Providers Care Director Of Donor Relations Name Role Phone Unavailable Primary Care Provider Unavailabl e Allergies No known active allergies Medications acetaminophen (Tylenol) 500 MG tabletIndications :Acute apical periodontitis of pulpal origin,Fractured dental roman catholic with loss of material Take 1 tablet (500 mg) by mouth every 6 (six) hours if needed for mild pain for up to 20 doses. 20 tablet 4 Active Additional Information Patient not taking.Reported on 11/19/2024 ibuprofen 600 MG tabletIndications :Acute apical periodontitis of pulpal origin,Fractured dental roman catholic with loss of material Take 1 tablet (600 mg) by mouth every 6 (six) hours if needed for mild pain for up to 20 doses. 20 tablet 4 Active Additional Information Patient not taking.Reported on 11/19/2024 Active Problems Problem Noted Date Diagnosed Date Fractured dental roman catholic with loss of materi al 09/08/2024 Dental caries 02/18/2024 Chronic cholecystitis 01/28/2024 Acute apical periodontitis of pulpal origin 11/2023 Cholecystitis 08/23/2023 Acute cholecystitis 08/22/2023 09/10/2023 Overview (09/10/2023): Admitted to [facility] 08/27/23 for acute acholecystitis and COVID 1, [...] the time you leave the hospital, call [phone] to schedule an appointment. It was also advised that most patients have a cholangiogram approximately 6 weeks after the tube is placed to help the surgeon decide if your tube can be removed or if you will need a surgery. If you have not received an appointment at the time you leave the hospital, call [phone] to schedule an appointment. I strongly advise pt follow up with surgery. He was given the number again to call and ER precautions. We attempted to call [facility] to confirmif he has an appointment but it closed before. We went over instructions in detail on how to call in the am and make an appointment. He will also be placed on the waiting list for a ne patient appointment here at the [facility]. Assessment & Plan (09/10/2023 5:04 PM EST): Admitted to [facility] 08/27/23 for acute acholecystitis and COVID 1, treated with antibiotics and percutaneous cholecystotomy tube placement. Instructed at [facility] to flush with sterile saline BID. Instructions at discharge: He was advised to schedule appointment with the Interventional Radiology (IR) team in approximately 4 weeks (end of August) unless otherwise instructed. If you have not received an appointment at the time you leave the hospital, call [phone] to schedule an appointment. It was also advised that most patients have a cholangiogram approximately 6 weeks after the tube is placed to help the surgeon decide if your tube can be removed or if you will need a surgery. If you have not received an appointment at the time you leave the hospital, call [phone] to schedule an appointment. I strongly advise pt follow up with surgery. He was given the number again to call and ER precautions. We attempted to call [facility] to confirmif he has an appointment but it closed before. We went over instructions in detail on how to call in the am and make an appointment. He will also be placed on the waiting list for a ne patient appointment here at the [facility]. Headache 05/01/2023 Assessment & Plan (05/01/2023 7:48 [...] Encounters Date Type Department Care Team Description 11/26/2024 10:00 AM EST Office Visit [facility] [address] [place] [phone] Ashlee Ayala Dental caries (Primary Dx); Defective dental roman catholic 11/19/2024 10:00 AM EST Office Visit [facility] [address] [place] [phone] Ashlee Ayala 11/17/2024 10:40 AM EST Office Visit [facility] [address] [place] [phone] Favio Byrd MD Urinary frequency (Primary Dx) 11/11/2024 2:30 PM EST Office Visit [facility] [address] [place] [phone] Ashlee Ayala Defective dental roman catholic (Primary Dx) 11/03/2024 2:00 PM EST Office Visit [facility] [address] [place] [address] Ashlee Ayala 10/27/2024 1:00 PM EST Office Visit [facility] [address] [place] [phone] Ashlee Ayala 10/22/2024 10:00 AM EST Office Visit [facility] [address] [place] [address] Ashlee Ayala from Last 3 Months Social History Tobacco Use Types Packs/Day Years Used Date Smoking Tobacco: Never Smokeless Tobacco: Never Tobacco Cessation:Counseling Given: Not Answered Alcohol Use Standard Drinks/Week Comments Never 0 (1 standard drink = 0.6 oz pur e alcohol) Sex and Gender Information Value Date Recorded Sex Assigned at Male 05/01/2023 10:05 AM EDT Legal Sex Male 10:00 AM EDT Gender Identity Male 05/01/2023 10:05 AM EDT Sexual Orientation Straight 05/01/2023 10 :08 AM EDT Last Filed Vital Signs Vital Sign Reading Time Taken Comments Blood Pressure 100/70 11/26/2024 10:09 AM EST Pulse 68 11/17/2024 10:41 AM [...] 09/10/2023 4:05 PM EST Plan of Treatment Health Maintenance Due [...] - 19+ 3-dose series) 1995 COVID-19 Vaccine (2023-2 5 season) 2024 Influenza Vaccine (#1) 2024 Dental Oral Exam 11/07/2024 05/06/2024 Dental Prophylaxis 11/07/2024 05/06/2024 Dental X-Ray: Bitewings 11/20/2025 11/19/19 25, 05/06/2024 Tobacco Screening 11/26/2025 11/26/2024 Zoster Vaccines (1 of 2) 2026 Dental [...] this topic Meningococcal Vaccine Aged Out No miguel luly eligible based on patient's age to [...] PRESENTATION, DETAILED AND EXTENSIVE TREATMENT PLANNING Routine 11/26/2024 10:00 AM EST 2 O RESIN-BASED COMPOSITE - 1 SURF, POSTERIOR Routine 11/26/2024 10:00 AM EST 30 MO RESIN-BASED COMPOSITE - 2 SURF, POSTERIOR Routine 11/26/2024 10:00 AM EST CASE PRESENTATION, DETAILED AND EXTENSIVE TREATMENT PLANNING Routine 11/19/2024 10:00 AM EST BITEWING - SINGLE RADIOGRAPHIC IMAGE Routine 11/19/2024 10:00 AM EST 31 CROWN - PORCELAIN/CERAMIC Routine 11/19/2024 10:00 AM EST CULTURE, URINE, ROUTINE Routine 11/17/2024 12:31 PM EST Urinary frequency CASE PRESENTATION, DETAILED AND EXTENSIVE TREATMENT PLANNING [...] SURF, POSTERIOR Routine 10/22/2024 10:00 AM EST PANORAMIC RADIOGRAPHIC IMAGE Routine 09/08/2024 11:30 AM EST PROPHYLAXIS - ADULT Routine 05/06/2024 2 :30 PM EDT PERIODIC ORAL EVALUATION - ESTABLISHED PATIENT Routine 05/06/2024 2:30 PM EDT from Last 3 Months or Most Recently Relevant to Health Maintenance Results * Culture, Urine, Routine (11/17/2024 12:31 PM EST) Urine Urine specimen obtained by clean catch procedure / Unknown 11/17/2024 12:31 PM EST 11/18/2024 11:59 AM EST Comment:[facility] - 11/19/2024 10:19 AM EST Urine Culture No growth. Specimen Source: Urine clean catch us Favio Byrd MD LAB MICROBIOLOGY - GENERAL ORDER [place] Final Result [facility] [address] [place] [address] [phone] from Last 3 Months Insurance [facility] HSN FULL [facility] HSN FULL DENTAL - HSN FULL (MEDICAID)
--- OUTSIDE RECORDS SUMMARY | 2025-01-12 15:36 | XMS_ITS | Clinical Summary ---
Author Organization [facility] Address [address] [place] [address] Care Team Providers Care Wind Turbine Mechanic Name Role Phone Shannen Turner Primary Care Provider [phone] Allergies No known active allergies Medications No [...] Vaccine ( - 2023-2 5 season) 2024 Alcohol/Substance Use Screening 09/29/2024 Depression Screening and Follow-Up 09/29/2024 Social Drivers of Health Vandana ual Screening 09/29/2024 Influenza Vaccine (Season Ended) 2025 RSV Vaccine (60+ years old a nd patients) (1 - 1-dose 75+ series) 2051 Pneumococcal Vaccine: Pediat reema (0-5 Years) and At-Risk Patients (6-50 Years) Aged Out No longer eligible b ased on patient's age to complete this topic Insurance [place] [address] HSNO/FREE CARE Care Teams Wind Turbine Mechanic Relationship Specialty Start Date End Date Shannen Turner PCP - General 05/08/23
--- OUTSIDE RECORDS SUMMARY | 2025-01-12 15:36 | XMS_ITS ---
Author Name [facility] Organization Unknown History of Medication Use Medication Directions Dispensed Refills Start Date End Date Stat us levoFLOXacin (LEVAQUIN) 500 MG tablet Take 1 tablet (500 mg total) by mouth daily. 08/27/2023 active Problems Problem Status Onset Date Problem Type Date of Resoluti on Source Acute cholecystitis active 2023-08-22 ProblemAct [facility] Cholecystitis active 2023-08-23 ProblemAct CC T Encounters Encounter Type Encounter Reason Primary Diagnosis Location Date Ambulatory Encounter for attention to other artificial openings of digestive tract Encounter for attention to other artificial openings of digestive tract Infor 10/15/2023 Inpatient Acute cholecystitis [facility]23 Care Team Organization Name Specialty Phone Email Start Date End Da te Infor ELOY QUIROGA Primary Care 10/15/202312/15 Infor 08/23/2023 12/15/2024 Infor ELOY QUIROGA Primary Care 08/22/202308/23 Infor
--- OUTSIDE RECORDS SUMMARY | 2025-01-12 15:36 | XMS_ITS | Clinical Summary ---
Author Organization [facility] Address [address] [place] [address] Care Team Providers Care Customer Servicer Name Role Phone Priyanka Jo MD Primary Care Provider [phone] Allergies No known active allergies Medications acetaminophen (TYLENOL) 325 MG tabletIndications: Acute cholecystitis Take 3 tablets (975 mg total) by mouth 4 times daily (every 6 hours) as needed for mild pain. 3 Active HYDROmorphone (DILAUDID) 2 MG tabletIndications: Acute cholecystitis Take 1 tablet (2 mg total) by mouth 4 times daily (every 6 hours) as needed for moderate pain or severe pain. Max Daily Amount: 8 mg 8 tablet 3 Active levoFLOXacin (LEVAQUIN) 500 MG tabletIndications: Acute cholecystitis Take 1 tablet (500 mg total) by mouth daily. 5 tablet 3 Active Active Problems Problem Noted Date Diagnosed Date Cholecystitis 08/23/2023 Acute cholecystitis 08/22/2023 Social History Tobacco Use Types Packs/Day Years Used Date Smoking Tobacco: Never Assessed Sex and Gender Information Value Date Recorded Sex Assigned at Male 08/22/2023 10:34 PM EST Legal Sex Male 5:09 PM EST Gender Identity Male 08/22/2023 10:34 [...] Urine 08/25/2023 - E.coli ESBL 08/29/2023 08/29/2023 Insurance MEDICAID OUT OF [place] [facility] [place] [address] [place]ID [place] [facility] Advance Directives * Full Code (Latest Code Status on File) Date Activated Date Inactivated Comments 08/23/2023 2:20 AM 10/15/2023 8:33 AM Care Teams Customer Servicer Relationship Specialty Start Date End Date Priyanka Jo MD [address] [place] [id number] PCP - General Surgery, General 08/13/23
--- OUTSIDE RECORDS SUMMARY | 2025-01-12 15:36 | XMS_ITS | Encounter Summary ---
Author Organization [employer] [facility] Address [address] [place] [address] Care Team Providers Care Biology Adjunct Instructor Name Role Phone Unavailable Primary Care Provider Unavailabl e Reason for Visit * Reason Onset Date Comments New Patient 05/15/2023 Encounter Details Date Type Department Care Team (Late st Contact Info) Description 05/15/2023 Telephone [facility] [address] [place] [address] Sylvain Ford MD [address] [place] [address] New Patient Social History Tobacco Use Types [...] been transfer over to wait list for RATE ENGINEER. EFFECTIVE SINCE 05/15/2023 documented in this encounter Plan of Treatment Not on file documented as of this encounter Visit Diagnoses Not on filedocumented in this encounter
--- OUTSIDE RECORDS SUMMARY | 2025-01-12 15:36 | XMS_ITS | Referral Summary ---
Author Organization [facility] Address [address] [place], [place] [id number] Care Team Providers Care Core Finisher Name Role Phone Shannen Turner Primary Care Provider [phone] Allergies No known active allergies Medications No [...] Plan of Treatment Not on file Insurance [facility] HS[facility]/FREE CARE Care Teams Core Finisher Relationship Specialty Start Date End Date Shannen Turner PCP - General 05/08/23
== END 2025-01-12 13:55 | disposition home or self-care (01) ==
LOC: HO.HUSH 13:10
PROVIDERS: PCP Emergency Medicine; Visit Provider Nurse Practitioner Family
DX: R35.0 Frequency of micturition (principal); R39.15 Urgency of urination; R39.9 Unspecified symptoms and signs involving the genitourinary system; Z13.9 Encounter for screening, unspecified
CPT/HCPCS: 99204

== ENCOUNTER → 2025-01-12 13:09 | Outpatient (BNVA) | payer OTHER, SELFPAY | PROVIDERS: PCP Emergency Medicine; Visit Provider Nurse Practitioner Family | DX: N40.1 Benign prostatic hyperplasia with lower urinary tract symptoms (principal); R35.0 Frequency of micturition; N32.81 Overactive bladder; R39.15 Urgency of urination | CPT/HCPCS: 81003; 99202 ==

== ENCOUNTER 2025-07-28 10:24 | Outpatient (AMB) | payer OTHER, SELFPAY ==
--- NOTE | 2025-07-28 10:46 | MHC.OFFVIS ---
Vital Signs 07/28/25 10:52 Height 5 ft 1 in BP 114/77 Blood Pressure Location Lt brachial Position Sitting Pulse 64 Intake Visit Reasons: RUQ abd, Hx cholecystitis Intake Note: This patient presents for an assessment for RUQ abdomen, history cholecystitis. Pt c/o; RUQ pain, no nausea or vomiting. DI: 12/01/2023: Abd US Box Storage Worker Required: Yes Box Storage Worker Language: Local Az Truck Driver Services: Box Storage Worker Present Box Storage Worker Name: Xochitl Information Interpreted: non-clinical & clinical Accompanied by: Self / Same As Patient Allergies No Known Allergies Allergy (Verified 07/28/25 11:07) Medication List - Last Reconciled 07/28/25 by Marcelo Rios MD No Known Home Meds HPI HPI RUQ abd, Hx cholecystitis: Details: 49-year-old male referred for gallstones. He is not a good historian so a lot of the history was based on records from his primary care physician He apparently was admitted to [facility] in July, because of acute cholecystitis as well as COVID infection. He had a cholecystostomy drain placed by IR at that time. He says that drain was removed about 3 months after He had mentioned to his primary care physician that he has this periodic pain on the right upper quadrant after that. However, he said he has had no pain for the past couple of months or so He has good oral intake. He says he does not have any other medical problems. [facility] Medical History Gallstones Fractured dental samaritan with loss of material Dental caries Cholecystitis Periodontitis, acute apical, pupal origin Acute cholecystitis Back pain Headache Family History Other Family history unknown Review of Systems Const Denies chills and Denies fever(s) Card Denies chest pain, Denies dyspnea and Denies dyspnea on exertion Resp Denies cough, Denies dyspnea and Denies dyspnea on exertion GI Denies hematochezia and Denies change in bowel habits Denies hematuria and Denies difficulty urinating Musc Denies back pain and Denies limited range of motion Neuro Denies focal weakness and Denies convulsions Psych Denies depression and Denies mood swings Physical Exam Const General: comfortable and no acute distress Orientation/consciousness: patient oriented x3 Neck Neck: Yes no lymphadenopathy Resp Auscultation: clear to auscultation bilaterally Cardio Rhythm: regular rhythm GI Palpation (GI): Soft to palpation, nontender and no guarding Neuro General: patient oriented x3 Assessment & Plan Assessment & Plan (1) Gallstones: Code(s): K80.20 - Calculus of gallbladder without cholecystitis without obstruction Category: Medical Plan: He apparently has a history of acute cholecystitis and underwent IR drain in [facility] in 2022. He had an ultrasound last year showing gallstones and sludge I am going to order for a CAT scan of his abdomen and pelvis. I am going to retrieve his records from [place] He says that he has had no pain the past few months but I will review the findings with him. I will therefore see him again in the office after his CAT scan so we can we discuss his options. He seemed to be comfortable with the plan. Orders: Orders CT abdomen pelvis w IV con Today K80.20 - Calculus of gallbladder without cholecystitis without obstruction Blood Urea Nitrogen Today K80.20 - Calculus of gallbladder without cholecystitis without obstruction Creatinine Today K80.20 - Calculus of gallbladder without cholecystitis without obstruction Coding Level of Care Code New Pt Level 3 (47764) Diagnoses Gallstones K80.20
[2025-07-28 10:52] VITALS: BP 114/77; PULSE 64
--- OUTSIDE RECORDS SUMMARY | 2025-07-28 12:35 | XMS_ITS | Clinical Summary ---
Author Organization [facility] Address [address] [place] [address] Care Team Providers Care Speech Coach Name Role Phone Priyanka Jo MD Primary Care Provider Allergies No known active allergies Medications acetaminophen [...] 64 10/15/2023 9:35 AM EST Temperature 35.6 C (96.1 F) 10/15/2023 8:51 AM EST Respiratory Rate 16 10/15/2023 9:35 AM EST [...] 3-dose series) 1995 Colonoscopy 2021 Influenza Vaccine 04/29/2025 COVID-19 Vaccine (2023-2 5 season) 2025 Pneumococcal Vaccine: Pediat reema (0-5 Years) and At-Risk Patients (6 to 49 Years) Aged Out No longer eligible b ased on patient's age to complete this topic Additional Health Concerns Infection Onset Date Last Indicated MDRO Comment:Place on contact precautions for each acute care admission Urine 08/25/2023 - E.coli ESBL 08/29/2023 08/29/2023 Insurance [place]ICA[place] [facility] [place] [place] [address] [place] [facility] [place] * Full Code (Latest Code Status on File) Date Activated Date Inactivated Comments 08/23/2023 2:20 AM 10/15/2023 8:33 AM Care Teams Speech Coach Relationship Specialty Start Date End Date Priyanka Jo MD [address] [place] [phone] PCP - General Surgery, General 08/13/23
--- OUTSIDE RECORDS SUMMARY | 2025-07-28 12:35 | XMS_ITS | Clinical Summary ---
Author Organization [facility] Address [address] [facility] [address] [place] [address] Care Team Providers Care Tire Setter Name Role Phone Unavailable Primary Care Provider Unavailabl e Allergies No known active allergies Medications acetaminophen (Tylenol) 500 MG tabletIndications :Acute apical periodontitis of pulpal origin,Fractured dental mandaeism with loss of material Take 1 tablet (500 mg) by mouth every 6 (six) hours if needed for mild pain for up to 20 doses. 20 tablet 4 Active Additional Information Patient not taking.Reported on 11/19/2024 ibuprofen 600 MG tabletIndications :Acute apical periodontitis of pulpal origin,Fractured dental mandaeism with loss of material Take 1 tablet (600 mg) by mouth every 6 (six) hours if needed for mild pain for up to 20 doses. 20 tablet 4 Active Additional Information Patient not taking.Reported on 11/19/2024 Active Problems Problem Noted Date Diagnosed Date Fractured dental mandaeism with loss of materi al 09/08/2024 Dental caries 02/18/2024 Chronic cholecystitis 01/28/2024 Acute apical periodontitis of pulpal origin 11/2023 Cholecystitis 08/23/2023 Acute cholecystitis 08/22/2023 09/10/2023 Overview (09/10/2023): Admitted to [facility] 08/27/23 for acute acholecystitis and COVID [...] the time you leave the hospital, call [phone] to schedule an appointment. It was also advised that most patients have a cholangiogram approximately 6 weeks after the tube is placed to help the surgeon decide if your tube can be removed or if you will need a surgery. If you have not received an appointment at the time you leave the hospital, call [phone] to schedule an appointment. I strongly advise pt follow up with surgery. He was given the number again to call and ER precautions. We attempted to call [facility] to confirmif he has an appointment but it closed before. We went over instructions in detail on how to call in the am and make an appointment. He will also be placed on the waiting list for a ne patient appointment here at the [facility]. Assessment & Plan (09/10/2023 5:04 PM EST): Admitted to [facility] 08/27/23 for acute acholecystitis and COVID 1, treated with antibiotics and percutaneous cholecystotomy tube placement. [facility] saline BID. Instructions at discharge: He was advised to schedule appointment with the Interventional Radiology (IR) team in approximately 4 weeks (end of August) unless otherwise instructed. If you have not received an appointment at the time you leave the hospital, call [phone] to schedule an appointment. It was also advised that most patients have a cholangiogram approximately 6 weeks after the tube is placed to help the surgeon decide if your tube can be removed or if you will need a surgery. If you have not received an appointment at the time you leave the hospital, call [phone] to schedule an appointment. I strongly advise pt follow up with surgery. He was given the number again to call and ER precautions. We attempted to call [facility] to confirmif he has an appointment but it closed before. We went over instructions in detail on how to call in the am and make an appointment. He will also be placed on the waiting list for a ne patient appointment here at the [facility]. Headache 05/01/2023 Assessment & Plan (05/01/2023 [...] Encounters Date Type Department Care Team Description 07/28/2025 Orders Only GENERIC EXTERNAL DATA DEPARTMENT Provider, Generic External Data 06/28/2025 Telephone [facility] [address] [place] [phone] Sylvain Ford MD 06/22/2025 5:00 PM EDT Office Visit [facility] [address] [place] [phone] Malcom Newby MD RUQ abdominal pain (Primary Dx); Urinary frequency 06/22/2025 Telephone [facility] [address] [place] [phone] Malcom Newby MD 06/22/2025 Travel from Last 3 Months Social History Tobacco [...] Sign Reading Time Taken Comments Blood Pressure 117/75 06/22/2025 5:05 PM EDT Pulse 66 06/22/2025 5:05 PM EDT Temperature 36.7 C (98.1 F) 06/22/2025 5:05 PM EDT Respiratory Rate 17 06/22/2025 5:05 PM EDT Oxygen Saturation 95% 06/22/2025 5:05 PM EDT Inhaled Oxygen Concentration - - Weight 71.6 kg (157 lb 12.8 oz) 06/22/2025 5:05 PM EDT Height 154.9 cm (5' 1 ) 06/22/2025 5:05 PM EDT Body Mass Index 29.82 06/22/2025 5:05 PM EDT Plan of Treatment Health Maintenance Due Date Last Done Comments CT Colonography 1976 Colonoscopy 1976 Colorectal Cancer Screening 1976 Depression Screening 1976 FIT DNA/Cologuard 1976 FIT 1976 FOBT 1976 HIV Screening 1976 Lipid Panel 1976 SDOH Screening 1976 Sigmoidoscopy 1976 Disability Screening 1976 Alcohol/Substance Use Screening 1988 Family Planning (PISQ) 1991 Hepatitis C Screening 1994 DTaP/Tdap/Td Vaccines (1 - Tdap) 1995 Hepatitis B Vaccines (1 of 3 - 19+ 3-dose series) 1995 Dental Oral Exam 11/07/2024 05/06/2024 Dental Prophylaxis 11/07/2024 05/06/2024 COVID-19 Vaccine (1 - 2023-2 5 season) 2025 Influenza Vaccine (#1) 2025 Dental X-Ray: Bitewings 11/20/2025 11/19/19 25, 05/06/2024 Tobacco Screening 06/22/2026 06/22/2025 Zoster Vaccines (1 of 2) 2026 Dental [...] patient's age to complete this topic Meningococcal B Vaccine Aged Out No l onger eligible based on patient's age to complete this topic Meningococcal Vaccine Aged Out No miguel luly eligible based on patient's age to complete this topic Pneumococcal Vaccine: Pediatrics (0 to 5 Years) and At-Risk Patients (6 to 49) Years Aged Out No longer eligible b ased on patient's age to complete this topic RSV under 20 months Aged Out No longe r eligible based on patient's age to complete this topic Rotavirus Vaccines Aged Out No longer eligible based on patient's age to complete this topic Procedures Procedure Name Priority Date/Time Associated Diagnosis Comments CREATININE, SERUM Routine 07/28/2025 11: 22 AM EDT UREA NITROGEN (BUN) Routine 07/28/2025 1 1:22 AM EDT POCT URINALYSIS DIPSTICK Routine 06/22/2025 5:58 PM EDT Urinary frequency BITEWING - SINGLE RADIOGRAPHIC IMAGE Routine 11/19/2024 10:00 AM EST PANORAMIC RADIOGRAPHIC IMAGE Routine 09/08/2024 11:30 AM EST PROPHYLAXIS - ADULT Routine 05/06/2024 2 :30 PM EDT PERIODIC ORAL EVALUATION - ESTABLISHED PATIENT Routine 05/06/2024 2:30 PM EDT from Last 3 Months or Most Recently Relevant to Health Maintenance Results * Creatinine, Serum (07/28/2025 11:22 AM EDT) Creatinine, Serum 0.78 0.5 - 1.4 mg/dL [facility] Estimated Glomerular Filt Rate >60 [facility] Comment:Chronic Kidney Disea se: Estimated GFR < 60 mL/min/1.56u7Iliowj Kidney Disease: Estimated GFR < 15 mL/min/1.73m2 07/28/2025 11:2 2 AM EDT 07/28/2025 11:22 AM EDT us Generic External Data Provider LAB BLOOD ORDERAB LES Final Result Performing Organization Address City/[facility]/ZIP Co de Phone Number [facility] [address] [place] [phone] * BUN (Blood Urea Nitrogen) (07/28/2025 11:22 AM EDT) Urea Nitrogen (BUN) 12 9 - 16 mg/dL [facility] 07/28/2025 11:2 2 AM EDT 07/28/2025 11:22 AM EDT us Generic External Data Provider LAB BLOOD ORDERAB LES Final Result Performing Organization Address [facility] Co de Phone Number [facility] [address] [place] [phone] * POCT urinalysis dipstick manually resulted (06/22/2025 5:58 PM EDT) Color, UA Yellow Clarity, UA Clear Glucose, UA Negative Bilirubin, UA Negative Ketones, UA Negative Spec Grav, UA 1.025 Blood, UA Negative Negative, None Detected pH, UA 6.5 Protein, UA Negative Urobilinogen, UA 1.0 Leukocytes, UA Negative Negative, Rare, Trace Nitrite, UA Negative Negative, None Detected Appearance, UA clear QC Media Lot # [id number] Lot# Expiration Date Urine 06/22/2025 5:58 PM EDT Malcom Newby MD POINT OF CARE TEST ENTER/EDIT OR DERABLES Final Result from Last 3 Months Insurance [facility]SN FULL [facility] HSN FULL DENTAL - HSN FULL (MEDICAID)
--- OUTSIDE RECORDS SUMMARY | 2025-07-28 12:35 | XMS_ITS | Clinical Summary ---
Author Organization [facility] Address [address] [id number] Care Team Providers Care Circuit Tester Name Role Phone Shannen Turner Primary Care Provider [phone] Allergies No known active allergies Medications No [...] 69 01/23/2024 3:53 PM EDT Temperature 36.3 C (97.3 F) 01/23/2024 3:53 PM EDT Respiratory Rate - - Oxygen Saturation 99% [...] DTaP,Tdap,and Td Vaccines (1 - Tdap) 1998 Alcohol/Substance Use Screening 09/29/2024 Depression Screening and Follow-Up 09/29/2024 Social Drivers of Health Vandana ual Screening 09/29/2024 COVID-19 Vaccine (1 - 2024-2 6 season) 2025 Influenza Vaccine (#1) 2025 RSV Vaccine (60+ years old a nd patients) (1 - 1-dose 75+ series) 2051 Pneumococcal Vaccine: Pediat reema (0-5 Years) and At-Risk Patients (6-50 Years) Aged Out No longer eligible b ased on patient's age to complete this topic [place] [address] [address] [place] [address] HSNO/FREE CARE Care Teams Circuit Tester Relationship Specialty Start Date End Date Shannen Turner PCP - General 05/08/23
--- OUTSIDE RECORDS SUMMARY | 2025-07-28 12:35 | XMS_ITS | Encounter Summary ---
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 EFFECTIVE SINCE 05/15/2023 documented in this encounter Plan of Treatment Not on file documented as of this encounter Visit Diagnoses Not on filedocumented in this encounter
--- OUTSIDE RECORDS SUMMARY | 2025-07-28 12:35 | XMS_ITS | Encounter Summary ---
Author Organization [facility] Address [address] [facility] [address] [place] [address] Care Team Providers Care Ruby On Rails Developer Name Role Phone Unavailable Primary Care Provider Unavailabl e Encounter Details Date Type Department Care Team (Late st Contact Info) Description 07/28/2025 Orders Only GENERIC EXTERNAL DATA DEPARTMENT Provider, Generic External Data Social History Tobacco Use Types Packs/Day Years Used Date Smoking Tobacco: Never Smokeless Tobacco: Never Alcohol Use Standard Drinks/Week Comments Never 0 (1 standard drink = 0.6 oz pur e alcohol) Sex and Gender Information Value Date Recorded Sex Assigned at Male 05/01/2023 10:05 AM EDT Legal Sex Male 10:00 AM EDT Gender Identity Male 05/01/2023 10:05 AM EDT Sexual Orientation Straight 05/01/2023 10 :08 AM EDT documented as of this encounter Plan of Treatment Not on file documented as of this encounter Procedures Procedure Name Priority Date/Time Associated Diagnosis Comments CREATININE, SERUM Routine 07/28/2025 11: 22 AM EDT UREA NITROGEN (BUN) Routine 07/28/2025 1 1:22 AM EDT documented in this encounter Results * Creatinine, Serum (07/28/2025 11:22 AM EDT) Creatinine, Serum 0.78 0.5 - 1.4 mg/dL [facility] Estimated Glomerular Filt Rate >60 [facility] Comment:Chronic Kidney Disea se: Estimated GFR < 60 mL/min/1.66k0Ibzoiy Kidney Disease: Estimated GFR < 15 mL/min/1.73m2 07/28/2025 11:2 2 AM EDT 07/28/2025 11:22 AM EDT us Generic External Data Provider LAB BLOOD ORDERAB LES Final Result Performing Organization Address City/[facility]/ZIP Co de Phone Number [facility] [address] [place] [address] [phone] * BUN (Blood Urea Nitrogen) (07/28/2025 11:22 AM EDT) Urea Nitrogen (BUN) 12 9 - 16 mg/dL [facility] 07/28/2025 11:2 2 AM EDT 07/28/2025 11:22 AM EDT us Generic External Data Provider LAB BLOOD ORDERAB LES Final Result Performing Organization Address [facility] Co de Phone Number [facility] [address] [place] [phone] documented in this encounter Visit Diagnoses Not on filedocumented in this encounter
--- OUTSIDE RECORDS SUMMARY | 2025-07-28 12:35 | XMS_ITS | Clinical Summary ---
Author Organization [facility] Address [address] [facility] [address] [place] [phone] Phone Care Team Providers Care Social Worker Masters Name Role Phone Pcp, Unknown Primary Care Provider Unavailabl e Allergies No known active allergies Medications tamsulosin (FLOMAX) 0.4 mg Cap Take 1 capsule (0.4 mg total) by mouth daily. 30 capsule 09/14/2024 Active Social History Tobacco Use Types Packs/Day Years Used Date Smoking Tobacco: Never Smokeless Tobacco: Never Tobacco Cessation:Counseling Given: Not Answered Alcohol Use Standard Drinks/Week Comments Not Currently 0 (1 standard drink = 0.6 oz pur e alcohol) Education Answer Date Recorded Are you interested in more education? Not on rafael e 08/21/2023 Are you concerned about learning? Not on file 08/21/2023 No 08/21/2023 No 08/21/2023 Digital Access Answer Date Recorded No 08/21/2023 No 08/21/2023 Reliable internet access at home? Not on file 08/21/2023 Device with a working camera? Not on file Intimate Partner Violence Answer Date R ecorded Are you denied basic needs s uch as food, clothing, or medical care? No 09/14/2024 In the past 12 months have y ou been in a relationship with a person who hurts, threatens, or tries to control you? No 09/14/2024 Are you denied basic needs s uch as food, clothing, or medical care? No 09/14/2024 In the past 12 months have y ou been in a relationship with a person who hurts, threatens, or tries to control you? No 09/14/2024 Sex and Gender Information Value Date Recorded Sex Assigned at Male 08/21/2023 4:29 AM EST Legal Sex Male 4:20 AM EST Gender Identity Male 08/21/2023 4:29 AM EST Sexual Orientation Straight 09/23/2023 2: 10 PM EST Last Filed Vital Signs Vital Sign Reading Time Taken Comments Blood Pressure 107/70 09/14/2024 12:58 PM EST Pulse 61 09/14/2024 12:58 PM EST Temperature 36.5 C (97.7 F) 09/14/2024 9:40 AM EST Respiratory Rate 18 09/14/2024 12:58 PM EST Oxygen Saturation 100% 09/14/2024 12:58 PM EST Inhaled Oxygen Concentration - - Weight 70.3 kg (155 lb) 09/14/2024 9:40 AM EST Height 165.1 cm (5' 5 ) 09/14/2024 9:40 AM EST Body Mass Index 25.79 09/14/2024 9:40 AM EST Plan of Treatment Health Maintenance Due Date Last Done Comments Adult Td,Tdap Booster 1976 LIPID PANEL 1976 DEPRESSION SCREENING 1988 HEPATITIS C SCREENING 1994 HIV ONE-TIME SCREENING (18-6 5 YEARS) 1994 COLOGUARD 2021 COLONOSCOPY 2021 COLORECTAL CANCER SCREENING 2021 FIT TEST 2021 FOBT 2021 SIGMOIDOSCOPY 2021 VIRTUAL COLONOSCOPY 2021 INFLUENZA VACCINE (#1) 2025 COVID-19 VACCINE ( - 2024-2 6 season) 2025 SCREENING FOR DIABETES 09/14/2027 4, 09/08/2024 SMOKING STATUS SCREENING (On ce After 26 Yrs) Completed 09/23/2023 HEPATITIS A VACCINES Aged Out No long er eligible based on patient's age to complete this topic HIB VACCINES Aged Out No longer eligi ble based on patient's age to complete this topic MENINGOCOCCAL VACCINES (ACWY) Aged Out No longer eligible based on patient's age to complete this topic MENINGOCOCCAL VACCINES (B) Aged Out N o longer eligible based on patient's age to complete this topic PNEUMOCOCCAL VACCINES (0-49 years) Aged Out No longer eligible b ased on patient's age to complete this topic Medical Devices Not on file [facility] S[facility] NET FULL [facility] [employer] SAFETY NET FULL [facility]ALTH SAFETY NET FULL [facility] Member Subscriber Plan / Payer (Ef fective 2023-Present) Name:Kwan Perez Relation to Subscriber:Self Name:Kwan Perez Payer ID:[id number] Group ID:Not on file Type:Medicaid Address: [place] [address] [place] [address] NET FULL Member Subscriber Plan / Payer (Ef fective 2023-Present) Name:Kwan Perez Relation to Subscriber:Self Name:Kwan Perez Payer ID:Not on file Group ID:Not on file Type:Medicaid Address: [place] [id number] [facility] HE[facility] SAF[facility] NET FULL Care Teams Social Worker Masters Relationship Specialty Start Date End Date Pcp, Unknown PCP - General 09/23/23 Additional Source Comments The information contained in this document represents components of the legal health record. It is not the complete legal health record.[facility]
--- OUTSIDE RECORDS SUMMARY | 2025-07-28 12:35 | XMS_ITS ---
Author Name [facility] Organization Unknown History of Medication Use Medication Directions Dispensed Refills Start Date End Date Stat us acetaminophen (TYLENOL) 325 MG tablet Take 3 tablets (975 mg total) by mouth 4 times daily (every 6 hours) as needed for mild pain. 08/27/2023 09/27/2023 active HYDROmorphone (DILAUDID) 2 MG tablet Take 1 tablet (2 mg total) by mouth 4 times daily (every 6 hours) as needed for moderate pain or severe pain. Max Daily Amount: 8 mg 08/27/2023 active levoFLOXacin (LEVAQUIN) 500 MG tablet Take 1 tablet (500 mg total) by mouth daily. 08/27/2023 active Problems Problem Status Onset Date Problem Type Date of Resoluti on Source Acute cholecystitis [facility] 2023-08-[address] [facility] 2023-08-[address] [facility] Encounters Encounter Type Encounter Reason Primary Diagnosis Location Date Ambulatory Encounter for attention to other artificial openings of digestive tract Encounter for attention to other artificial openings of digestive tract [facility] 10/15/2023 Inpatient Acute cholecystitis [facility] Care Team Organization Name Specialty Phone Email Start Date End Da te [facility] 10/[facility]202312/15 [facility] 12/15/2024 [facility] 08/22/202308/23 [facility]
== END 2025-07-28 11:30 | disposition home or self-care (01) ==
PROVIDERS: PCP Emergency Medicine; Visit Provider Surgery
DX: K80.20 Calculus of gallbladder without cholecystitis without obstruction (principal)
CPT/HCPCS: 99203

== ENCOUNTER 2025-07-28 10:24 | Outpatient (REF) | payer OTHER, SELFPAY ==
[2025-07-28 12:32] LABS: Blood Urea Nitrogen 12 mg/dL (9-16); Estimated Glomerular Filt Rate > 60
== END 2025-07-28 10:25 | disposition home or self-care (01) ==
LOC: HO.LAB 10:24
PROVIDERS: PCP Emergency Medicine; Visit Provider Surgery
DX: K80.20 Calculus of gallbladder without cholecystitis without obstruction (principal)
CPT/HCPCS: 36415; 82565; 84520; 99202

== ENCOUNTER 2025-09-19 09:16 | Outpatient (REF) | payer OTHER, SELFPAY ==
--- OUTSIDE RECORDS SUMMARY | 2025-09-15 09:30 | XMS_ITS | Encounter Summary ---
Author Organization [employer] Address [address] [facility] [address] [place] [address] Care Team Providers Care Air Pollution Analyst Name Role Phone Razia Lopez NP Primary Care Provider [phone] Encounter Details Date Type Department Care Team (Late st Contact Info) Description 09/15/2025 9:30 AM EST Office Visit [facility] MEDICINE [address] [place] [address] Razia Lopez NP [address] [place] [address] Encounter to establish care with new provider (Primary Dx); Encounter for health-related screening; Screening for colon cancer; Overweight (BMI 25.0-29.9); Urinary frequency; Encounter for immunization; Right upper quadrant pain; Dietary counseling; Exercise counseling Social History Tobacco Use Types Packs/Day Years Used Date Smoking Tobacco: Never Passive Smoke Exposure: Never Smokeless Tobacco: Never Alcohol Use Standard Drinks/Week Comments Never 0 (1 standard drink = 0.6 oz pur e alcohol) Alcohol Answer Date Recorded Q1: How often do you have a drink containing alc ohol? 1 09/15/2025 Q2: How many drinks containi ng alcohol do you have on a typical day when you are drinking? 0 09/15/2025 Q3: How often do you have six or more drinks on one occasion? 1 09/15/2025 Depression Answer Date Recorded Patient Health Questionnaire-9 Score 0 09/15/2025 Patient Health Questionnaire-9 Score 0 09/15/2025 Last PHQ-9: Questionnaire Data Not on file 1 11/16/2024 Housing Stability Answer Date Recorded What is your housing situation today? I have heide munoz 09/07/[address] you li ve. Do you have problems with any of the following? None of the above 09/07/2025 Food Insecurity Answer Date Recorded Within the past 12 months, y ou worried that your food would run out before you got money to buy more: Never True 09/07/2025 Within the past 12 months,th e food you bought just didn't last and you didn't have enough money to get more: Never True 06/2025 Transportation Answer Date Recorded In the past 12 months, has l ack of transportation kept you from medical appts, meetings, work or from getting things needed for daily living? No 09/07/2025 Utilities Answer Date Recorded In the past 12 months, has t he electric, gas, oil or water company threatened to shut off services in your home? No 09/07/2025 Depression Answer Date Recorded Patient Health Questionnaire-2 Score 0 09/15/2025 Internet Access Answer Date Recorded Internet Access Q1 No 09/15/2025 Internet Access Q2 Not on file 09/15/2025 Sex and Gender Information Value Date Recorded Sex Assigned at Male 05/01/2023 10:05 AM EDT Legal Sex Male 10:00 AM EDT Gender Identity Male 05/01/2023 10:05 AM EDT Sexual Orientation Straight 05/01/2023 10 :08 AM EDT documented as of this encounter Last Filed Vital Signs Vital Sign Reading Time Taken Comments Blood Pressure 100/62 09/15/2025 9:34 AM EST Pulse 74 09/15/2025 9:34 AM EST Temperature 36.6 C (97.8 F) 09/15/2025 9:34 AM EST Respiratory Rate 16 09/15/2025 9:34 AM EST Oxygen Saturation 98% 09/15/2025 9:34 AM EST Inhaled Oxygen Concentration - - Weight 72.5 kg (159 lb 12.8 oz) 09/15/2025 9:34 AM EST Height 165.1 cm (5' 5 ) 09/15/2025 9:34 AM EST Body Mass Index 26.59 09/15/2025 9:34 AM EST documented in this encounter Functional Status * AUDIT-C Score Answer Date of Assessment Author 0 09/15/2025 9:34 AM EST Joon Su MA * Alcohol Use Question Answer Date of Assessment Author Q1: How often do you have a drink containing alcohol? Never 09/15/2025 9:34 AM iLza Whitmore [place] Q2: How many drinks containing alcohol do you have on a typical day when you are drinking? Patient does not drink 09/15/2025 9:34 AM Liza Whitmore [place] Q3: How often do you have six or more drinks on one occasion? Never 09/15/2025 9:34 AM Liza Whitmore MA * Over the past 2 weeks, how often have you been bothered by any of the following problems? Question Answer Date of Assessment Author Patient Health Questionnaire -2 Score 0 09/15/2025 9:35 AM Liza Whitmore MA * Little interest or pleasure in doing things Answer Date of Assessment Author Not at all 09/15/2025 9:35 AM Joon Whitmore [place] * Feeling down, depressed, or hopeless Answer Date of Assessment Author Not at all 09/15/2025 9:35 AM Joon Whitmore [place] * Trouble falling or staying asleep, or sleeping too much Answer Date of Assessment Author Not at all 09/15/2025 9:35 AM Joon Whitmore [place] * Feeling tired or having little energy Answer Date of Assessment Author Not at all 09/15/2025 9:35 AM Joon Whitmore [place] * Poor appetite or overeating Answer Date of Assessment Author Not at all 09/15/2025 9:35 AM Joon Whitmore [place] * Feeling bad about yourself - or that you are a failure or have let yourself or your family down Answer Date of Assessment Author Not at all 09/15/2025 9:35 AM Joon Whitmore MA * Trouble concentrating on things, such as reading the newspaper or watching television Answer Date of Assessment Author Not at all 09/15/2025 9:35 AM Joon Whitmore MA * Moving or speaking so slowly that other people could have noticed? Or the opposite - being so fidgety or restless that you have been moving around a lot more than usual. Answer Date of Assessment Author Not at all 09/15/2025 9:35 AM Joon Whitmore MA * Thoughts that you would be better off or hurting yourself in some way Answer Date of Assessment Author Not at all 09/15/2025 9:35 AM Joon Whitmore MA * Patient Health Questionnaire-9 Score Answer Date of Assessment Author 0 09/15/2025 9:35 AM Joon Whitmore MA * Over the last 2 weeks, how often have you been bothered by any of the following problems? Question Answer Date of Assessment Author Feeling nervous, anxious, or on edge 0 09/15/2025 9:35 AM Liza Whitmore MA Not being able to stop or co ntrol worrying 0 09/15/2025 9:35 AM Liza Whitmore MA Worrying too much about diff erent things 0 09/15/2025 9:35 AM Liza Whitmore MA Trouble relaxing 0 09/15/2025 9:35 AM Liza Rogers MA Being so restless that it is hard to sit still 0 09/15/2025 9:35 AM Liza Whitmore MA Becoming easily annoyed or irritable 0 09/15/2025 9:35 AM Liza Whitmore MA Feeling afraid as if somethi ng awful might happen 0 09/15/2025 9:35 AM Liza Whitmore MA ARIELA-7 Total Score 0 09/15/2025 9:35 AM Liza Whitmore MA documented as of this encounter Progress Notes * Razia Lopez NP - 09/15/2025 9:30 AM EST Subjective Patient ID: Kwan Torres is a 49 y.o. male who presents for new patient visit. Denies recent illness, injury or hospitalization. Previous PCP unable to recall. HPI Concerns: intermittent RUQ pain occurring for several months now. Feels like sharp pains that last for about 3 mins before resolving and occurs again in about 30 mins. Notes its more prevalent with greasy foods. Not associated with nausea or vomiting. Last BM this am; describes stool color as yellow. Denies radiation of pain to neck, back, shoulders. 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 Has some vision changes Dental: established with dental home [facility]. Last seen 5-6 months ago Colon CA: routine screening starting at 45-75 years old per [facility] Lung CA: N/A never smoker COVID vaccination status: Outstanding IZ: Tdap, flu Family History[4] Review of Systems Constitutional: Negative. Negative for chills and fever. HENT: Negative. Negative for congestion and sore throat. Eyes: Negative for discharge. Respiratory: Negative for cough, chest tightness and shortness of breath. Cardiovascular: Negative for chest pain and palpitations. Gastrointestinal: Positive for abdominal pain. Negative for constipation, diarrhea, nausea and vomiting. Genitourinary: Negative. Negative for difficulty urinating. Musculoskeletal: Negative. Negative for arthralgias and myalgias. Skin: Negative for rash. Neurological: Negative. Negative for dizziness, speech difficulty, light- headedness and headaches. Hematological: Negative. Psychiatric/Behavioral: Negative for behavioral problems, self-injury and suicidal ideas. The patient is not nervous/anxious. Objective: Visit Vitals BP 100/62 (BP Location: Left arm, Patient Position: Sitting, BP Cuff Size: Adult) Pulse 74 Temp 97.8 ??F (36.6 ??C) (Oral) Resp 16 Ht 5' 5 (1.651 m) Wt 159 lb 12.8 oz (72.5 kg) SpO2 98% BMI 26.59 kg/m?? Smoking Status Never BSA 1.82 m?? Problem List[5] Current Medications[6] Immunization History Administered Date(s) Administered Tdap 09/15/2025 Physical Exam Vitals reviewed. Constitutional: General: He is not in acute distress. Appearance: Normal appearance. He is not ill-appearing. HENT: Head: Normocephalic and atraumatic. Right Ear: External ear normal. Left Ear: External ear normal. Nose: Nose normal. Eyes: General: No scleral icterus. Extraocular Movements: Extraocular movements intact. Cardiovascular: Rate and Rhythm: Normal rate and regular rhythm. Pulses: Normal pulses. Heart sounds: Normal heart sounds. Pulmonary: Effort: Pulmonary effort is normal. No respiratory distress. Breath sounds: Normal breath sounds. Abdominal: Tenderness: There is no abdominal tenderness. There is no right CVA tenderness, left CVA tendernessor guarding. Musculoskeletal: General: Normal range of motion. Cervical back: Normal range of motion. Skin: General: Skin is warm. Coloration: Skin is not jaundiced. Neurological: General: No focal deficit present. Mental Status: He is alert and oriented to person, place, and time. Gait: Gait normal. Psychiatric: Mood and Affect: Mood normal. Behavior: Behavior normal. Assessment & Plan Encounter to establish care with new provider -patient is new to [facility] -personal medical, surgical, and medication histories reviewed along with family hx -routine health maintenance discussed - health maintenance labs ordered. Will call with results Encounter for health-related screening Orders: Lipid Panel, Standard; Future HIV-1/2 Antigen and Antibodies, Fourth Generation, with Reflexes; Future Hepatitis A,B,C Profile; Future Basic Metabolic Panel; Future Screening for colon cancer -patient agreeable to screening with cologuard -counseled on 13% false positive and 8% false negative rate and is aware that if the test is positive a diagnostic colonoscopy should be pursued within 3-6 months. -patient informed of need to repeat test in 3 years if negative result -cologuard order placed Orders: Cologuard?? colon cancer screening Overweight (BMI 25.0-29.9) -Healthy diet and exercise teaching completed: Eat a variety of fruit and vegetables, whole grains such as whole-wheat flour, bulgur (cracked wheat), oatmeal, and brown rice. Intake protein from beans, nuts, fish, and lean meats. Eat low-fat or fat-free dairy products. Limit highly processed foods such as hot dogs, sandwich meat, etc. Engage in minimum of 150 min of moderate intensity exercise weekly -labs ordered to assess for endocrine contribution and resulting metabolic effects Orders: Basic Metabolic Panel; Future Urinary frequency - reports history of urinary frequency and retention. Requesting lab to check prostate Orders: PSA,Total; Future Encounter for immunization Orders: TDAP VACCINE 7 yrs + Right upper quadrant pain -Intermittent RUQ pain appearing to be chronic. Patient with history of cholecystitis per chart review and was seen with similar complaint in May 2025 - Vital signs in clinic stable and PE is reassuring - RUQ may be referred renal colic as patient also has kidney stones, pending further intervention - PUD is also considered although less likely based on intermittent nature of the symptoms - Advised to complete previously ordered CBC, lipase and amylase - Recommend avoidance of triggers and close monitoring -ED precautions reviewed -Will call with wildly abnormal results, otherwise, results to be reviewed at follow-up Orders: Hepatic Function Panel; Future Dietary counseling Exercise counseling Future Appointments Date Time Provider Department Center 10/27/2025 11:00 AM Razia Lopez NP MEDICINE [facility] Serbian Translation: Provided by [facility] staff member AGATA Paula [1] Past Medical History: Diagnosis Date Kidney stones [2] History reviewed. No pertinent surgical history. [3] No Known Allergies [4] Family History Problem Relation Name Age of Onset Hypertension Mother [5] Patient Active Problem List Diagnosis Headache Back pain Acute cholecystitis Acute apical periodontitis of pulpal origin Cholecystitis Chronic cholecystitis Dental caries Fractured dental faith with loss of material Cough in adult patient Upper respiratory tract infection [6] No current outpatient medications on file. documented in this encounter Plan of Treatment Upcoming Encounters Date Type Department Care Team (Late st Contact Info) Description 09/19/2025 10:30 AM EST Office Visit [facility] ADULT DENTAL [address] [place] [address] Gigi-Lady Velazquez, DDS [address] [place] [address] Symptomatic irreversible pulpitis (Primary Dx) 10/24/2025 9:00 AM EST Office Visit [facility] ADULT DENTAL [address] [place] [address] 10/27/2025 11:00 AM EST Office Visit [facility] MEDICINE [address] [place] [address] Razia Lopez NP [address] [place] [address] Scheduled Orders Name Type Priority Associated Diagnoses Orde r Schedule Lipid Panel, Standard Lab Routine Encounter for health-related screening Expected: 09/15/2025 (Approximate), Expires: 09/15/2026 HIV-1/2 Antigen and Antibodies, Fourth Generation, with Reflexes Lab Routine Encounter for health-related screening Expected: 09/15/2025 (Approximate), Expires: 09/15/2026 Hepatitis A,B,C Profile Lab Routine Encounter for health-related screening Expected: 09/15/2025, Expires: 09/15/2026 Basic Metabolic Panel Lab Routine Encounter for health-related screening Overweight (BMI 25.0-29.9) Expected: 09/15/2025 (Approximate), Expires: 09/15/2026 PSA,Total Lab Routine Urinary frequency Expected: 09/15/2025, Expires: 09/15/2026 Cologuard colon cancer screening Lab Routine Screening for colon cancer Ordered: 09/15/2025 Hepatic Function Panel Lab Routine Right upper quadrant pain Expected: 09/15/2025 (Approximate), Expires: 09/15/2026 documented as of this encounter Visit Diagnoses Diagnosis Encounter to establish care with new provider- Primary Encounter for health-related screening Screening for colon cancer Special screening for malignant neoplasms, colon Overweight (BMI 25.0-29.9) Overweight Urinary frequency Encounter for immunization Right upper quadrant pain Abdominal pain, right upper quadrant Dietary counseling Dietary surveillance and counseling Exercise counseling Symptomatic irreversible pulpitis- Primary documented in this encounter Additional Health Concerns Assessment Noted Time PHQ-9 Depression Total Score: 0 09/15/20 25 9:35 AM EST documented as of this encounter Care Teams Air Pollution Analyst Relationship Specialty Start Date End Date Razia Lopez NP [address] [place] [address] PCP - General Family Medicine 09/15/25 documented as of this encounter
--- OUTSIDE RECORDS SUMMARY | 2025-09-19 10:19 | XMS_ITS | Clinical Summary ---
Author Organization [facility] Address [address] [place] [address] Care Team Providers Care Pct Name Role Phone Priyanka Jo MD Primary [...] Colonoscopy 2021 Influenza Vaccine 04/29/2025 COVID-19 Vaccine ( - 2024-2 6 season) 2025 Pneumococcal Vaccine: Pediat reema (0-5 Years) and At-Risk Patients (6 to 49 Years) Aged Out No longer eligible b ased on patient's age to complete this topic Additional Health Concerns Infection Onset Date Last Indicated MDRO Comment:Place on contact precautions for each acute care admission Urine 08/25/2023 - E.coli ESBL 08/29/2023 08/29/2023 Insurance MEDICAID OUT OF STATE [facility] [place] [address] MEDICAID OUT OF STATE [facility] Advance Directives * Full Code (Latest Code Status on File) Date Activated Date Inactivated Comments 08/23/2023 2:20 AM 10/15/2023 8:33 AM Care Teams Pct Relationship Specialty Start Date End Date Priyanka Jo MD [address] [place] [id number] PCP - General Surgery, General 08/13/23
--- OUTSIDE RECORDS SUMMARY | 2025-09-19 10:19 | XMS_ITS | Encounter Summary ---
Author Organization [employer] Address [address] [facility] [address] [place] [address] Care Team Providers Care Traffic Rate Analyst Name Role Phone Unavailable Primary Care Provider Unavailabl e Reason for Visit * Reason Onset Date Comments Chart Prep 09/14/2025 Encounter Details Date Type Department Care Team ([facility] st Contact Info) Description 09/14/2025 Telephone [facility] MEDICINE [address] [place], [place] [phone] Razia Lopez NP [address] [place], [place] [phone] Chart Prep Social History Tobacco Use Types Packs/Day Years [...] encounter Miscellaneous Notes * Telephone Encounter - Adela Atkinson MA - 09/14/2025 2:35 PM EST Chart Prep Labs: done Images: not applicable Referrals: not applicable Vaccines due: Covid, Flu, Tdap, and Hep B Screenings: colonoscopy, PISQ, and HIV Screening, Hep C Screening Overdue care gaps: PHQ-9, ARIELA-7, SBIRT, Disability Screen documented in this encounter Plan of Treatment Upcoming Encounters Date Type Department Care Team (Late st Contact Info) Description 09/19/2025 10:30 AM EST Office Visit [facility] ADULT DENTAL [address] [place] [address] Lady Lynch DDS [address] [place] [address] Symptomatic irreversible pulpitis (Primary Dx) 10/24/2025 9:00 AM EST Office Visit [facility] ADULT DENTAL [address] [place] [address] 10/27/2025 11:00 AM EST Office Visit [facility] MEDICINE [address] [place] [address] Razia Lopez NP [address] [place] [address] documented as of this encounter Visit Diagnoses Not on filedocumented in this encounter
--- OUTSIDE RECORDS SUMMARY | 2025-09-19 10:19 | XMS_ITS | Encounter Summary ---
Author Organization [employer] [facility] Address [address] [facility] [address] [place] [address] Care Team Providers Care Business System Consultant Name Role Phone Razia Lopez CELL TOWER CLIMBER Primary Care Provider [phone] Reason for Visit * Reason Onset Date Comments New Patient 05/15/2023 Encounter Details Date Type Department Care Team (Late st Contact Info) Description 05/15/2023 Telephone [facility] MEDICINE [address] [place] [address] Sylvain Ford MD [address] [place] [address] New Patient Social History Tobacco Use Types [...] been transfer over to wait list for CELL TOWER CLIMBER. EFFECTIVE SINCE 05/15/2023 documented in this encounter Plan of Treatment Upcoming Encounters Date Type Department Care Team (Late st Contact Info) Description 09/19/2025 10:30 AM EST Office Visit [facility] ADULT DENTAL [address] [place] [address] Lady Lynch, DDS [address] [place] [address] Symptomatic irreversible pulpitis (Primary Dx) 10/24/2025 9:00 AM EST Office Visit [facility] ADULT DENTAL [address] [place], [place] [phone] 10/27/2025 11:00 AM EST Office Visit [facility] MEDICINE [address] [place] [address] Razia Lopez NP [address] [place] [address] documented as of this encounter Visit Diagnoses Not on filedocumented in this encounter Care Teams Business System Consultant Relationship Specialty Start Date End Date Razia Lopez NP [address] [place] [address] PCP - General Family Medicine 09/15/25 documented as of this encounter
--- OUTSIDE RECORDS SUMMARY | 2025-09-19 10:19 | XMS_ITS | Clinical Summary ---
Author Organization [facility] Address [address] [facility] [address] [place] [phone] Phone Care Team Providers Care Floriculture Professor Name Role Phone Pcp, Unknown Primary Care [...] topic Medical Devices Not on file Insurance [facility] SAFETY NET FULL [facility] [employer] SAFETY NET FULL [facility] NET FULL [facility] Member Subscriber Plan / Payer (Ef fective 2023-Present) Name:Kwan Perez Relation to Subscriber:Self Name:Kwan Perez Payer ID:[id number] Group ID:Not on file Type:Medicaid Address: [place] [address] [place] [address] NET FULL Member Subscriber Plan / Payer (Ef fective 2023-Present) Name:Kwan Perez Relation to Subscriber:Self Name:Kwan Perez Payer ID:Not on file Group ID:Not on file Type:Medicaid Address: [place] [id number] [facility] HEALTH SAFETY NET FULL Care Teams Floriculture Professor Relationship Specialty Start Date End Date Pcp, Unknown PCP - General 09/23/23 Additional Source Comments The information contained in this document represents components of the legal health record. It is not the complete legal health record.[facility]
--- OUTSIDE RECORDS SUMMARY | 2025-09-19 10:19 | XMS_ITS | Clinical Summary ---
Author Organization [employer] Address [address] [facility] 7[address] [place] [address] Care Team Providers Care Director Of Online Merchandising Name Role Phone Razia Lopez MERVIN Primary Care Provider [phone] Allergies No known active allergies Medications acetaminophen (Tylenol 8 Hour) 650 MG ER tablet Take 1 tablet (650 mg) by mouth every 8 (eight) hours if needed for moderate pain for up to 10 days. Do not crush, chew, or split. 15 tablet 09/19/20 25 026 Active ibuprofen 800 MG tablet Take 1 tablet (800 mg) by mouth every 8 (eight) hours if needed for mild pain for up to 10 days. 15 tablet 09/19/20 25 026 Active acetaminophen (Tylenol) 500 MG tabletIndication s:Acute apical periodontitis of pulpal origin,Fractured dental rastafarian with loss of material Take 1 tablet (500 mg) by mouth every 6 (six) hours if needed for mild pain for up to 20 doses. 20 tablet 09/08/20 24 025 Discontinued(Re order (will not trigger notification to Pharmacy)) ibuprofen 600 MG tabletIndication s:Acute apical periodontitis of pulpal origin,Fractured dental rastafarian with loss of material Take 1 tablet (600 mg) by mouth every 6 (six) hours if needed for mild pain for up to 20 doses. 20 tablet 09/08/20 24 025 Discontinued(Me d list cleanup (will not trigger notification to Pharmacy)) benzonatate (Tessalon) 100 MG capsuleIndicatio ns:Cough in adult patient Take 1 capsule (100 mg) by mouth if needed in the morning, at noon, and at bedtime for cough for up to 7 days. Do not crush or chew. 20 capsule 12/11/202 5 4:14 PM EST 09/08/20 025 Discontinued(Me d list cleanup (will not trigger notification to Pharmacy)) acetaminophen (Tylenol) 500 MG tabletIndication s:Upper respiratory tract infection, unspecified type Take 2 tablets (1,000 mg) by mouth every 8 (eight) hours if needed for mild pain for up to 20 doses. 20 tablet 5 4:14 PM EST 09/08/20 025 Discontinued(Me d list cleanup (will not trigger notification to Pharmacy)) oxybutynin XL (Ditropan-XL) 10 MG 24 hr tablet Take 1 tablet by mouth Once per day. 01/13/20 025 Discontinued(Me d list cleanup (will not trigger notification to Pharmacy)) tamsulosin (Flomax) 0.4 MG 24 hr capsule Take 0.4 mg by mouth Once per day. 09/14/20 025 Discontinued(Me d list cleanup (will not trigger notification to Pharmacy)) Active Problems Problem Noted Date Diagnosed Date Cough in adult patient 09/11/2025 Upper respiratory tract infection 09/11/2025 Fractured dental rastafarian with loss of materi al 09/08/2024 Dental caries 02/18/2024 Chronic cholecystitis 01/28/2024 Acute apical periodontitis of pulpal origin 11/2023 Cholecystitis 08/23/2023 Acute cholecystitis 08/22/2023 09/10/2023 Overview (09/10/2023): Admitted to [facility] 08/27/23 for acute acholecystitis and COVID 1, treated with antibiotics and percutaneous cholecystotomy tube placement. [facility] to flush with sterile saline BID. Instructions at discharge: He was advised to schedule appointment with the Interventional Radiology (IR) team in approximately 4 weeks (end of August) unless otherwise instructed. If you have not received an appointment at the time you leave the hospital, call [phone] to schedule an appointment. It was also advised that most patients have a cholangiogram approximately 6 weeks after the tube is placed to help the surgeon decide if your tube can be removed or if you will need a surgery. If you have not received an appointment at the time you leave the hospital, call [phone] to schedule an appointment. I strongly advise pt follow up with surgery. He was given the number again to call and ER precautions. We attempted to call [facility] to confirmif he has an appointment but it closed before. We went over instructions in detail on how to call in the am and make an appointment. He will also be placed on the waiting list for a ne patient appointment here at the [facility]. Assessment & Plan (09/10/2023 5:04 PM EST): Admitted to [facility] 08/27/23 for acute acholecystitis and COVID 1, treated with antibiotics and percutaneous cholecystotomy tube placement. Instructed [facility] to flush with sterile saline BID. Instructions at discharge: He was advised to schedule appointment with the Interventional Radiology (IR) team in approximately 4 weeks (end of August) unless otherwise instructed. If you have not received an appointment at the time you leave the hospital, call [phone] to schedule an appointment. It was also advised that most patients have a cholangiogram approximately 6 weeks after the tube is placed to help the surgeon decide if your tube can be removed or if you will need a surgery. If you have not received an appointment at the time you leave the hospital, call [phone] to schedule an appointment. I strongly advise pt follow up with surgery. He was given the number again to call and ER precautions. We attempted to call [facility] to confirmif he has an appointment but it closed before. We went over instructions in detail on how to call in the am and make an appointment. He will also be placed on the waiting list for a ne patient appointment here at the [facility]. Headache 05/01/2023 Assessment & Plan [...] Encounters Date Type Department Care Team Description 09/19/2025 10:30 AM EST Office Visit [facility] ADULT [facility]ENT[facility] [address] [place] [phone] Lady Lynch DDS Symptomatic irreversible pulpitis (Primary Dx) 09/15/2025 9:30 AM EST Office Visit [facility] [address] [place] [phone] Razia Lopez NP Encounter to establish care with new provider (Primary Dx); Encounter for health-related screening; Screening for colon cancer; Overweight (BMI 25.0-29.9); Urinary frequency; Encounter for immunization; Right upper quadrant pain; Dietary counseling; Exercise counseling 09/15/2025 Travel 09/14/2025 Telephone [facility] [address] [place] [phone] Razia Lopez NP Chart Prep 09/08/2025 2:40 PM EST Office Visit [facility] [address] [place] [phone] Barby Patten FNP Upper respiratory tract infection, unspecified type (Primary Dx); Cough in adult patient; Upper respiratory symptom 09/08/2025 Travel 09/07/2025 Patient Outreach [facility] [address] [place] [address] [phone] Razia Lopez NP Pre-visit Planning (SDOH Screening negative and Tobacco screening negative) 08/05/2025 Telephone [facility] [address] [place] [address] 11089 Myra James MD 07/28/2025 Orders Only GENERIC EXTERNAL DATA DEPARTMENT Provider, Generic External Data 06/28/2025 Telephone [facility] [address] [place] [phone] Sylvain Ford MD 06/22/2025 5:00 PM EDT Office Visit [facility] [address] [place] [address] [phone] Malcom Newby MD RUQ abdominal pain (Primary Dx); Urinary frequency 06/22/2025 Telephone [facility] [address] [place] [address] [phone] Malcom Newby MD 06/22/2025 Travel from Last 3 Months Immunizations Immunization Administration Dates Next Due Tdap 09/15/2025 Family History Medical History Relation Name Comments Hypertension Mother Relation Name Status Comments Mother Social History Tobacco Use Types Packs/Day Years [...] Sign Reading Time Taken Comments Blood Pressure 100/72 09/19/2025 9:43 AM EST Pulse 74 09/15/2025 9:34 AM [...] Mass Index 26.59 09/15/2025 9:34 AM EST Plan of Treatment Upcoming Encounters Date Type Department Care Team (Late st Contact Info) Description 09/19/2025 10:30 AM EST Office Visit [facility] [address] [place] [address] Lady Lynch, MARIAELENAS [address] [place] [address] Symptomatic irreversible pulpitis (Primary Dx) 10/24/2025 9:00 AM EST Office Visit [facility] [address] [place] [address] 10/27/2025 11:00 AM EST Office Visit [facility] [address] [place] [address] Razia Lopez NP [address] [place] [address] Health Maintenance Due Date Last Done Comments CT Colonography 1976 Colonoscopy 1976 Colorectal Cancer Screening 1976 FIT DNA/Cologuard 1976 FIT 1976 FOBT 1976 HIV Screening 1976 Lipid Panel 1976 Sigmoidoscopy 1976 Hepatitis C Screening 1994 Hepatitis B Vaccines (1 of 3 - 19+ 3-dose series) 1995 Dental Oral Exam 11/07/2024 05/06/2024 Dental Prophylaxis 11/07/2024 05/06/2024 COVID-19 Vaccine (1 - 2024-2 6 season) 2025 Influenza Vaccine (#1) 2025 Alcohol/Substance Use Screening 09/15/2026 09/15/2025 Depression Screening 09/15/2026 09/15/2025, 09/15/2025 Disability Screening 09/15/2026 09/15/2025 Family Planning (PISQ) 09/15/2026 09/15/2025 SDOH Screening 09/15/2026 09/15/2025 Tobacco Screening 09/15/2026 09/15/2025 Dental X-Ray: Bitewings 09/20/2026 09/19/20 25, 11/19/2024, 05/06/2024 Zoster Vaccines (1 of 2) 2026 Dental X-Ray: Full Mouth 09/09/2027 024, 05/06/2024 DTaP/Tdap/Td Vaccines (2 - T d or Tdap) 09/15/2035 09/15/2025 RSV Patients and Patients Aged 60 years [...] PRESENTATION, DETAILED AND EXTENSIVE TREATMENT PLANNING Routine 09/19/2025 10:30 AM EST Symptomatic irreversible pulpitis BITEWING - SINGLE RADIOGRAPHIC IMAGE Routine 09/19/2025 10:30 AM EST Symptomatic irreversible pulpitis INTRAORAL - PERIAPICAL FIRST RADIOGRAPHIC IMAGE Routine 09/19/2025 10:30 AM EST Symptomatic irreversible pulpitis PALLIATIVE (EMERGENCY) TREATMENT OF DENTAL PAIN - MINOR PROCEDURE Routine 09/19/2025 10:30 AM EST Symptomatic irreversible pulpitis POCT INFLUENZA A (ID NOW RAPID MOLECULAR) Routine 09/08/2025 3:15 PM EST Cough in adult patient Upper respiratory symptom POCT INFLUENZA B (ID NOW RAPID MOLECULAR) Routine 09/08/2025 3:14 PM EST Cough in adult patient Upper respiratory symptom POC VALLE ID NOW STREP A Routine 09/08/2025 3:09 PM EST Cough in adult patient Upper respiratory symptom POCT RAPID COVID ANTIGEN Routine 09/08/2025 3:08 PM EST Cough in adult patient Upper respiratory symptom CREATININE, SERUM Routine 07/28/2025 11: 22 AM EDT UREA NITROGEN (BUN) Routine 07/28/2025 1 1:22 AM EDT POCT URINALYSIS DIPSTICK Routine 06/22/2025 5:58 PM EDT Urinary frequency PANORAMIC RADIOGRAPHIC IMAGE Routine 09/08/2024 11:30 AM EST PROPHYLAXIS - ADULT Routine 05/06/2024 2 :30 PM EDT PERIODIC ORAL EVALUATION - ESTABLISHED PATIENT Routine 05/06/2024 2:30 PM EDT from Last 3 Months or Most Recently Relevant to Health Maintenance Results * Influenza A (ID NOW Rapid Molecular) (09/08/2025 3:15 PM EST) [facility] Influenza A Negative Negative, Indeterminate [facility] Swab 09/08/2025 3:15 PM EST Barby GI-Viewo SPORTS CARTOONIST POINT OF CARE TEST ENTER/EDIT ORDERABLES Final Result Performing Organization Address [facility]/ZIP Co de Phone Number [facility] [address] [place] [address] [phone] * Influenza B (ID NOW Rapid Molecular) (09/08/2025 3:14 PM EST) [facility] Influenza B Negative Negative, Indeterminate [facility] Swab 09/08/2025 3:14 PM EST Hublishedo SPORTS CARTOONIST POINT OF CARE TEST ENTER/EDIT ORDERABLES Final Result Performing Organization Address [facility] Co de Phone Number [facility] [address] [place] [address] [phone] * POCT ID NOW Rapid Strep A manually resulted (09/08/2025 3:09 PM EST) [facility] Rapid Strep A Screen Negative Negative, None Detected Swab 09/08/2025 3:09 PM EST Barby [employer] SPORTS CARTOONIST POINT OF CARE TEST ENTER/EDIT ORDERABLES Final Result * POCT Rapid COVID Ag (09/08/2025 3:08 PM EST) Rapid COVID Ag Negative Swab 09/08/2025 3:08 PM EST Barbyglenna Allenbrenna SPORTS CARTOONIST POINT OF CARE TEST ENTER/EDIT ORDERABLES Final Result * Creatinine, Serum (07/28/2025 11:22 AM EDT) Creatinine, Serum 0.78 0.5 - 1.4 mg/dL [facility] Estimated Glomerular Filt Rate >60 [facility] Comment:Chronic Kidney Disea se: Estimated GFR < 60 mL/min/1.77a9Cgucqp Kidney Disease: Estimated GFR < 15 mL/min/1.73m2 07/28/2025 11:2 2 AM EDT 07/28/2025 11:22 AM EDT Generic External Data Provider LAB BLOOD ORDERAB LES Final Result [facility] [address] [place] [address] [phone] * BUN (Blood Urea Nitrogen) (07/28/2025 11:22 AM EDT) Urea Nitrogen (BUN) 12 9 - 16 mg/dL [facility] 07/28/2025 11:2 2 AM EDT 07/28/2025 11:22 AM EDT Generic External Data Provider LAB BLOOD ORDERAB LES Final Result Performing Organization Address City/[facility]/ZIP Co de Phone Number [facility] [address] [place] [address] [phone] * POCT urinalysis dipstick manually resulted [...] Media Lot # [id number] Lot# Expiration Date ,026 Urine 06/22/2025 5:58 PM EDT Malcom Newby MD POINT OF CARE TEST ENTER/EDIT OR DERABLES Final Result from Last 3 Months Insurance [facility] FULL [facility] HSN FULL DENTAL - HSN FULL (MEDICAID) Care Teams Director Of Online Merchandising Relationship Specialty Start Date End Date aRzia Lopez NP [address] [place] [phone] PCP - General Family Medicine 09/15/25
--- OUTSIDE RECORDS SUMMARY | 2025-09-19 10:19 | XMS_ITS | Encounter Summary ---
Author Organization [employer] Address [address] [facility] 7[address] [place] [address] Care Team Providers Care Horticulture Worker Name Role Phone Razia Lopez COMPUTER TAPE LIBRARIAN Primary Care Provider [phone] Encounter Details Date Type Department Care Team (Latest Contact Info) Description 09/15/2025 Travel Social History Tobacco Use Types Packs/Day Years [...] as of this encounter Plan of Treatment Upcoming Encounters Date Type Department Care Team (Late st Contact Info) Description 09/19/2025 10:30 AM EST Office Visit [facility] AD[facility] [address] [place] [address] Lady Lynch DDS [address] [place] [address] Symptomatic irreversible pulpitis (Primary Dx) 10/24/2025 9:00 AM EST Office Visit [facility] [address] [place] [address] 10/27/2025 11:00 AM EST Office Visit [facility] [address] [place] [address] Razia Lopez NP [address] [place] [address] documented as of this encounter Visit Diagnoses Not on filedocumented in this encounter Additional Health Concerns Assessment Noted Time PHQ-9 Depression Total Score: 0 09/15/20 9:35 AM EST documented as of this encounter Care Teams Horticulture Worker Relationship Specialty Start Date End Date Razia Lopez NP [address] [place] [address] PCP - General Family Medicine 09/15/25 documented as of this encounter
--- OUTSIDE RECORDS SUMMARY | 2025-09-19 10:19 | XMS_ITS | Clinical Summary ---
Author Organization [facility] Address [address] [id number] Care Team Providers Care Treatment Manager Name Role Phone Shannen Turner Primary Care Provider [phone] Allergies No known active allergies Medications No [...] Health Vandana ual Screening 09/29/2024 Influenza Vaccine (#1) 2025 COVID-19 Vaccine ( - 2024-2 6 season) 2025 Pneumococcal Vaccine: Pediat reema (0-5 Years) and At-Risk Patients (6-50 Years) Aged Out No longer eligible b ased on patient's age to complete this topic Insurance [facility] HS/FREE CARE Care Teams Treatment Manager Relationship Specialty Start Date End Date Shannen Turner PCP - General 05/08/23
--- OUTSIDE RECORDS SUMMARY | 2025-09-19 10:30 | XMS_ITS | Encounter Summary ---
Author Organization [employer] Address [address] [facility] [address] [place] [address] Care Team Providers Care Christian Science Reader Name Role Phone Razia Lopez MERVIN Primary Care Provider [phone] Reason for Visit * Reason Comments Dental Pain Encounter Details Date Type Department Care Team ([facility] st Contact Info) Description 09/19/2025 10:30 AM EST Office Visit [facility] ADULT DENTAL [address] [place] [address] Lady Lynch DDS [address] [place] [address] Symptomatic irreversible pulpitis (Primary Dx) Social History Tobacco Use Types [...] the past 12 months, has t he [employer], gas, oil or water company threatened to [...] Pressure 100/72 09/19/2025 9:43 AM EST Pulse - - Temperature - - Respiratory Rate - - Oxygen Saturation - - Inhaled Oxygen Concentration - - Weight - - Height - - Body Mass Index - - documented in this encounter Progress Notes * Lady Lynch DDS - 09/19/2025 10:30 AM EST Dental procedures in this visit D9110 - PALLIATIVE (EMERGENCY) TREATMENT OF DENTAL PAIN - MINOR PROCEDURE (Completed) Service provider: Lady Lynch DDS Billing provider: Lady Lynch DDS [id number] - INTRAORAL - PERIAPICAL FIRST RADIOGRAPHIC IMAGE (Completed) Service provider: Lady Lynch DDS Billing provider: Lady Lynch DDS D0270 - BITEWING - SINGLE RADIOGRAPHIC IMAGE (Completed) Service provider: Lady Lynch DDS Billing provider: Lady Lynch DDS [id number] - CASE PRESENTATION, DETAILED AND EXTENSIVE TREATMENT PLANNING (Completed) Service provider: Lady Lynch DDS Billing provider: Lady Lynch DDS Patient ID: Kwan Torres is a 49 y.o. male. Time Out: Timeout Date: 09/19/25, Timeout Time: 0942 (Verified Name and . Emergency) Location: [facility] Tooth: #30 Procedure: Emergency Verified the above with patient, biology laboratory assistant, and provider. Confirmed via patient's chart, intraorally and by radiographs. [place]: not applicable Chief Complaint Patient presents with Dental Pain Medical Hx: Vitals: Blood pressure 100/72. Medical History[1] Medications: Encounter Medications[2] Subjective: Pain: moderate, severe Duration: 2 days Objective: Tooth: #30 Radiographs Taken: BW(s) and PA(s) Radiographic Findings: Fractured/Broken Tooth- deep composite filling Clinical Findings: Large DOLB composite filing in proximity with pulp. Worn occlusal facets. Positive to palpation and percussion. Swelling: Tenderness Endo Testing: Cold: Hypersensitive, lingering Percussion: Pain Palpation: Pain Diagnosis: Acute Irreversible Pulpitis Assessment/Plan: Referred for RCT, POC and crown Prescriptions: Ibuprofen 800 mg/tid/prn 15 tabs Tylenol 650 mg/tid/prn 15 tabs Pt tolerated procedure well, all questions answered. Dismissed in good condition. NV: RCT #30 Stone Sandblaster: Jaimee Olivia Dentist: Lady Lynch DDS [1] Past Medical History: Diagnosis Date Kidney stones [2] Outpatient Encounter Medications as of 09/19/2025 Medication Sig Dispense Refill acetaminophen (Tylenol 8 Hour) 650 MG ER tablet Take 1 tablet (650 mg) by mouth every 8 (eight) hours if needed for moderate pain for up to 10 days. Do not crush, chew, or split. 15 tablet 0 ibuprofen 800 MG tablet Take 1 tablet (800 mg) by mouth every 8 (eight) hours if needed for mild pain for up to 10 days. 15 tablet 0 [DISCONTINUED] acetaminophen (Tylenol) 500 MG tablet Take 2 tablets (1,000 mg) by mouth every 8 (eight) hours if needed for mild pain for up to 20 doses. 20 tablet 0 [DISCONTINUED] benzonatate (Tessalon) 100 MG capsule Take 1 capsule (100 mg) by mouth if needed in the morning, at noon, and at bedtime for cough for up to 7 days. Do not crush or chew. 20 capsule 0 [DISCONTINUED] ibuprofen 600 MG tablet Take 1 tablet (600 mg) by mouth every 6 (six) hours if needed for mild pain for up to 20 doses. (Patient not taking: Reported on 11/19/2024) 20 tablet 0 [DISCONTINUED] oxybutynin XL (Ditropan-XL) 10 MG 24 hr tablet Take 1 tablet by mouth Once per day. [DISCONTINUED] tamsulosin (Flomax) 0.4 MG 24 hr capsule Take 0.4 mg by mouth Once per day. No facility-administered encounter medications on file as of 09/19/2025. documented in this encounter Plan of Treatment Upcoming Encounters Date Type Department Care Team (Late st Contact Info) Description 10/24/2025 9:00 AM EST Office Visit [facility] [address] [place] [address] 10/27/2025 11:00 AM EST Office Visit [facility] [address] [place] [address] Razia Lopez NP [address] [place] [address] Scheduled Orders Name Type Priority Associated Diagnoses Orde r Schedule 30 30 ENDODONTIC THERAPY, MOLAR TOOTH Dental Routine [address] arting 09/19/2025 30 30 PREFABRICATED POST AND CORE IN ADDITION TO CROWN Dental Routine [address] arting 09/19/2025 30 30 CROWN - PORCELAIN/CERAMIC Dental Routine 1 Occurrences starting 09/19/2025 CROWN PREP Dental Routine 1 Occurrences starting 09/19/2025 documented as of this encounter Procedures Procedure Name Priority Date/Time Associated Diagnosis Comments PALLIATIVE (EMERGENCY) TREATMENT OF DENTAL PAIN - MINOR PROCEDURE Routine 09/19/2025 10:30 AM EST Symptomatic irreversible pulpitis INTRAORAL - PERIAPICAL FIRST RADIOGRAPHIC IMAGE Routine 09/19/2025 10:30 AM EST Symptomatic irreversible pulpitis CASE PRESENTATION, DETAILED AND EXTENSIVE TREATMENT PLANNING Routine 09/19/2025 10:30 AM EST Symptomatic irreversible pulpitis BITEWING - SINGLE RADIOGRAPHIC IMAGE Routine 09/19/2025 10:30 AM EST Symptomatic irreversible pulpitis documented in this encounter Visit Diagnoses Diagnosis Symptomatic irreversible pulpitis- Primary documented in this encounter Additional Health Concerns Assessment Noted Time PHQ-9 Depression Total Score: 0 09/15/20 9:35 AM EST documented as of this encounter Care Teams Christian Science Reader Relationship Specialty Start Date End Date Razia Lopez NP [address] [place] [phone] PCP - General Family Medicine 09/15/25 documented as of this encounter
[2025-09-19 11:08] LABS: MANUAL DIFF FLAG NO
[2025-09-19 11:22] LABS: Hematocrit 44.1 % (42.0-52.0); Hemoglobin 14.3 g/dl (14.0-18.0); Imm Gran Abs Auto 0.04 X10*3/uL (0.00-0.03); Imm Gran Pct Auto 0.5 % (0.0-0.4); Lymphocytes Absolute Auto 1.6 X10*3/uL (1.2-4.9); Mean Corpuscular HGB Conc 32.4 g/dl (31.0-36.0); Mean Corpuscular Hemoglobin 29.9 pg (27.0-33.0); Mean Corpuscular Volume 92.3 fL (80.0-98.0); NRBC Abs Auto 0.000 X10*3/uL (0.0-0.012); NRBC Pct Auto 0.0 /100WBC (0.0-0.2); Platelet Count 316 X10*3/uL (160-400); Red Blood Count 4.78 X10*6/uL (4.60-5.80); White Blood Count 7.6 X10*3/uL (4.8-10.8)
[2025-09-19 11:36] LABS: Albumin Level 4.5 g/dL (3.5-5.0); Alkaline Phosphatase 127 U/L (39-117); Amylase 118 U/L (28-100); Anion Gap 11 (12-20); Aspartate Amino Transferase 29 U/L (5-37); Blood Urea Nitrogen 15 mg/dL (9-16); Calcium 9.3 mg/dL (8.4-10.2); Carbon Dioxide 25 mmol/L (22-29); Chloride 109 mmol/L (96-108); Cholesterol 173 mg/dL (<200); Estimated Glomerular Filt Rate > 60; HDL Cholesterol 32 mg/dL (>40); Lipase 39 U/L (8-78); Potassium 4.1 mmol/L (3.3-5.1); Sodium 141 mmol/L (135-145); Total Protein 7.3 g/dL (6.5-8.0); Triglycerides 198 mg/dL (<150)
[2025-09-19 11:47] LABS: Alanine Aminotransferase 27 U/L (0-40)
[2025-09-19 11:52] LABS: Prostate Specific Antigen 4.84 ng/mL (<0.05-4.0)
[2025-09-19 12:25] LABS: HBS Num1 0.00 mIU/mL (0-7.99); HBc Num1 0.13 S/CO (0.00-0.79); HBsAGNum1 0.40 S/CO (0.00-0.99); HIV Num 1 0.09 S/CO (0.00-0.99); Hepatitis A Antibody IgM 0.20 Index (0-0.79); Hepatitis B Surface Antigen Negative (Negative); ~HepC Num1 0.10 S/CO (0.00-0.79); ~Hepatitis A Antibody IgM Nonreactive (Nonreactive); ~Hepatitis B Surface Antibody NONREACTIVE (Nonreactive); ~Hepatitis C Antibody Nonreactive (Nonreactive)
[2025-09-19 12:27] LABS: PSA,Total (Free>4and<10) 4.68 ng/mL (0.00-4.00)
[2025-09-21 12:58] LABS: Free Prostate Spec Ag 1.1 ng/mL; Percent Free Prostate Spec Ag 22 % (calc) (>25)
== END 2025-09-19 09:17 | disposition home or self-care (01) ==
LOC: HO.HHCL 09:16
PROVIDERS: Family Medicine; Nurse Practitioner Family; PCP Nurse Practitioner; Referring Provider Emergency Medicine; Visit Provider Nurse Practitioner
DX: Z12.5 Encounter for screening for malignant neoplasm of prostate (principal); Z13.9 Encounter for screening, unspecified; Z11.59 Encounter for screening for other viral diseases; Z11.4 Encounter for screening for human immunodeficiency virus [HIV]; N40.1 Benign prostatic hyperplasia with lower urinary tract symptoms; R35.0 Frequency of micturition; R10.11 Right upper quadrant pain
CPT/HCPCS: 36415; 80053; 80061; 82150; 82248; 83690; 84153; 84154; 85025; 86704; 86706; 86709; 86803; 87340; 87389